=== PATIENT | female | born 1990 | race Two or more races ===

== ENCOUNTER 2017-02-26 15:05 | Observation (INO) | payer MEDICAID ==
[2017-02-26] MEDS ORDERED: PREN-96 PO (16:03)
== END 2017-02-26 18:12 | disposition home or self-care (01) | DRG 566 ==
LOC: LDRP 15:05
PROVIDERS: ADMIT Specialist; ATTEND Specialist
DX: O26.892 Other specified pregnancy related conditions, second trimester (principal); M54.5 Low back pain; R10.9 Unspecified abdominal pain; Z3A.21 21 weeks gestation of pregnancy
CPT/HCPCS: 59025; 76805; 80307; 81002; 87086; G0378

== ENCOUNTER 2017-05-26 02:49 | Observation (INO) | payer MEDICAID ==
[~2017-05-26 02:49] MED LIST: PREN-96 PO
[2017-05-26] MEDS ORDERED: LACTATED RINGER'S 1,000 ML IV ONE (03:44)
[2017-05-26] MEDS ORDERED: TERBUTALINE SULFATE 1 MG/ML 1ML VIAL SC ONE (03:45)
[2017-05-26] MEDS ORDERED: TERBUTALINE SULFATE 1 MG/ML 1ML VIAL SC SCH (03:45)
[2017-05-26 04:41] LABS: Urine Bacteria NONE SEEN /hpf (None Seen); Urine Blood Negative /uL (Negative); Urine Mucus FEW (None Seen); Urine Specific Gravity 1.032 (1.001-1.035); Urine WBC 2 /hpf (0 - 5)
[2017-05-26 04:56] LABS: Amphetamine Screen, Urine NEGATIVE (NEGATIVE); Barbiturate Scree,Urine NEGATIVE (NEGATIVE); Benzodiazephine Screen, Urine NEGATIVE (NEGATIVE); Cannabinoid Screen, Urine POSITIVE (NEGATIVE); Cocaine Screen, Urine NEGATIVE (NEGATIVE); Opiate Scree,Urine NEGATIVE (NEGATIVE); Phencyclidine Screen, Urine NEGATIVE (NEGATIVE)
[2017-05-26] MEDS ORDERED: BETAMETHASONE ACET (6MG/ML) 5ML VIAL IM ONE (05:00)
[2017-05-26] MEDS ORDERED: NIFEdipine 10 MG CAP PO ONE (05:00)
[2017-05-26] MEDS ORDERED: NIFEdipine 10 MG CAP ONE (05:08)
[2017-05-26] MEDS: BETAMETHASONE ACET (6MG/ML) 5ML VIAL ONE ×2 (05:15→05:22)
== END 2017-05-26 06:30 | disposition home or self-care (01) | DRG 566 ==
LOC: LDRP 02:49
PROVIDERS: ADMIT Obstetrics & Gynecology; ATTEND Obstetrics & Gynecology
DX: O26.893 Other specified pregnancy related conditions, third trimester (principal); O62.9 Abnormality of forces of labor, unspecified; R10.9 Unspecified abdominal pain; M54.5 Low back pain; Z3A.33 33 weeks gestation of pregnancy
CPT/HCPCS: 59025; 80307; 81001; 81002; 96360; 96361; 96372; G0378; J0702; J3105; 96365; 96366

== ENCOUNTER 2017-05-28 10:15 | Observation (INO) | payer MEDICAID ==
[2017-05-28] MEDS ORDERED: TERBUTALINE SULFATE 1 MG/ML 1ML VIAL SC ONE (11:00)
[2017-05-28] MEDS ORDERED: BETAMETHASONE ACET (6MG/ML) 5ML VIAL ONE (11:04)
[2017-05-28] MEDS ORDERED: NIF10C GT (12:25)
[2017-05-28] MEDS ORDERED: BETAMETHASONE ACET (6MG/ML) 5ML VIAL IM SCH (22:00)
== END 2017-05-28 11:48 | disposition home or self-care (01) | DRG 566 ==
LOC: LDRP 10:15
PROVIDERS: ADMIT Obstetrics & Gynecology; ATTEND Obstetrics & Gynecology
DX: O26.893 Other specified pregnancy related conditions, third trimester (principal); M54.5 Low back pain; R10.9 Unspecified abdominal pain; Z3A.33 33 weeks gestation of pregnancy
CPT/HCPCS: 59025; 81002; 96372; G0378; J0702; J3105

== ENCOUNTER 2017-06-19 11:45 | Observation (INO) | payer MEDICAID ==
[~2017-06-19 11:45] MED LIST changes: +NIF10C GT
== END 2017-06-19 13:40 | disposition home or self-care (01) | DRG 566 ==
LOC: LDRP 11:45
PROVIDERS: ADMIT Specialist; ATTEND Specialist
DX: O36.5930 Maternal care for other known or suspected poor fetal growth, third trimester, not applicable or unspecified (principal); O26.893 Other specified pregnancy related conditions, third trimester; M54.5 Low back pain; R10.9 Unspecified abdominal pain; Z3A.36 36 weeks gestation of pregnancy
CPT/HCPCS: 59025; 76818; 81002; G0378

== ENCOUNTER 2017-06-22 11:20 | Observation (INO) | payer MEDICAID ==
[~2017-06-22] VITALS: Ht 30.5 cm; Wt 0.5 kg
== END 2017-06-22 13:00 | disposition home or self-care (01) | DRG 566 ==
LOC: LDRP 11:20
PROVIDERS: ADMIT Obstetrics & Gynecology; ATTEND Obstetrics & Gynecology
DX: O36.5930 Maternal care for other known or suspected poor fetal growth, third trimester, not applicable or unspecified (principal); Z87.891 Personal history of nicotine dependence; Z3A.37 37 weeks gestation of pregnancy
CPT/HCPCS: 59025; 76818; 81002; G0378

== ENCOUNTER 2017-06-25 11:25 | Observation (INO) | payer MEDICAID ==
[~2017-06-25 11:25] MED LIST changes: -NIF10C GT
[2017-06-25 13:24] LABS: Urine Bacteria NONE SEEN /hpf (None Seen); Urine Blood Negative /uL (Negative); Urine Mucus FEW (None Seen); Urine Specific Gravity 1.025 (1.001-1.035); Urine WBC 1 /hpf (0 - 5)
[2017-06-25 13:35] LABS: Alcohol, Urine < 3.0 mg/dL (0-5); Amphetamine Screen, Urine NEGATIVE (NEGATIVE); Barbiturate Scree,Urine NEGATIVE (NEGATIVE); Benzodiazephine Screen, Urine NEGATIVE (NEGATIVE); Cannabinoid Screen, Urine POSITIVE (NEGATIVE); Cocaine Screen, Urine NEGATIVE (NEGATIVE); Opiate Scree,Urine NEGATIVE (NEGATIVE); Phencyclidine Screen, Urine NEGATIVE (NEGATIVE)
== END 2017-06-25 13:05 | disposition home or self-care (01) | DRG 566 ==
LOC: LDRP 11:25
PROVIDERS: ADMIT Specialist; ATTEND Specialist
DX: O36.5930 Maternal care for other known or suspected poor fetal growth, third trimester, not applicable or unspecified (principal); O26.893 Other specified pregnancy related conditions, third trimester; M54.5 Low back pain; R10.9 Unspecified abdominal pain; Z3A.37 37 weeks gestation of pregnancy
CPT/HCPCS: 59025; 76818; 80307; 81001; 81002; G0378

== ENCOUNTER 2017-06-25 18:52 | Inpatient (IN) | payer MEDICAID ==
[~2017-06-25] VITALS: Ht 165.1 cm; Wt 81.6 kg
[2017-06-25] MEDS ORDERED: LACTATED RINGER'S 1,000 ML IV ONE (19:30)
[2017-06-25] MEDS: LACTATED RINGER'S 1,000 ML IV SCH ×2 (19:55→23:30)
[2017-06-25 20:09] LABS: Basophils # (auto) 0 uL; Basophils % (auto) 0.2 % (0.0-2.0); Eosinophils # (auto) 0.2 uL; Eosinophils % (auto) 1.4 % (0.0-7.0); Hematocrit 36.9 % (36.0-46.0); Hemoglobin 12.4 g/dL (12.2-16.2); Lymphocytes # (auto) 1.8 uL; Lymphocytes % (auto) 15.5 % (10.0-50.0); Mean Corpuscular Hemoglobin 30.5 pg (28.0-32.0); Mean Corpuscular Hgb Conc. 33.6 g/dL (32.0-36.0); Mean Corpuscular Volume 90.8 fL (80.0-100.0); Monocytes # (auto) 0.7 uL; Monocytes % (auto) 6.4 % (0.0-12.0); Neutrophils # (auto) 8.7 uL; Neutrophils % (auto) 76.5 % (37.0-80.0); Nucleated Red Blood Cells % 0.1 %; Platelet Count (auto) 207 10^3/uL (140-450); Red Blood Cells 4.06 10^6/uL (4.0-5.20); Red Cell Distribution Width 13.7 % (11.8-14.3); White Blood Cell 11.3 10^3/uL (4.4-10.8)
[2017-06-25 20:16] LABS: Urine Bacteria FEW /hpf (None Seen); Urine Blood Negative /uL (Negative); Urine Mucus FEW (None Seen); Urine Specific Gravity 1.031 (1.001-1.035); Urine WBC 4 /hpf (0 - 5)
[2017-06-25 20:26] LABS: INR 0.85 (0.9-1.15); Partial Thromboplastin Time 28.1 sec (22.64-33.71); Prothrombin Time 9.3 sec (9.37-12.3)
[2017-06-25 20:29] LABS: Albumin 2.7 g/dL (3.4-5.0); BUN/Creatinine Ratio 24.1; Bilirubin, Total 0.1 mg/dL (0.2-1.0); Calcium 9.2 mg/dL (8.5-10.1); Potassium 3.6 mmol/L (3.5-5.1); Total Protein 7.1 g/dL (6.4-8.2)
[2017-06-25 20:29] LABS: Alcohol, Urine < 3.0 mg/dL (0-5); Amphetamine Screen, Urine NEGATIVE (NEGATIVE); Barbiturate Scree,Urine NEGATIVE (NEGATIVE); Benzodiazephine Screen, Urine NEGATIVE (NEGATIVE); Cannabinoid Screen, Urine POSITIVE (NEGATIVE); Cocaine Screen, Urine NEGATIVE (NEGATIVE); Opiate Scree,Urine NEGATIVE (NEGATIVE); Phencyclidine Screen, Urine NEGATIVE (NEGATIVE)
[2017-06-25] MEDS ORDERED: NALBUPHINE HCL 10 MG/1ml INJECTION IV PRN (21:45)
[2017-06-25] MEDS ORDERED: LIDOCAINE 2%HCL (LOCAL ANESTH.) INJ 20ML MDV IJ ONE (21:45)
[2017-06-25] MEDS ORDERED: PHISODERM TOP SOLN 240ML BTL TOP PRN (21:45)
[2017-06-25] MEDS ORDERED: DERMOPLAST 60ML BOTTLE TOP PRN (21:45)
[2017-06-25] MEDS ORDERED: WITCH HAZEL-GLYCERIN PAD TOP PRN (21:45)
[2017-06-25] MEDS ORDERED: LACT. RINGERS/OXYTOCIN 20UNITS 1,000 ML IV SCH (21:45)
[2017-06-26] MEDS ORDERED: LACT. RINGERS/OXYTOCIN 20UNITS 1,000 ML IV SCH ×2 (13:23→19:55)
[2017-06-26] MEDS ORDERED: ePHEDrine SULFATE 50 MG/ML AMP IV ONE ×2 (13:30→15:45)
[2017-06-26] MEDS ORDERED: NALOXONE HCL 0.4 MG/ML VIAL IV ONE ×2 (13:30→15:45)
[2017-06-26] MEDS ORDERED: TERBUTALINE SULFATE 1 MG/ML 1ML VIAL SC ONE (13:30)
[2017-06-26] MEDS ORDERED: fentaNYL W ROPIVACAINE 150 ML EPI ONE (14:59)
[2017-06-26] MEDS ORDERED: LIDOCAINE HCL 2 %PF INJ 10ML AMP IJ ONE ×3 (14:59→18:48)
[2017-06-26] MEDS ORDERED: fentaNYL W ROPIVACAINE 150 ML EPI SCH ×2 (15:00→15:45)
[2017-06-26] MEDS ORDERED: fentaNYL CITRATE 100 MCG/2 ML VL ONE ×2 (15:30→18:55)
[2017-06-26] MEDS ORDERED: SODIUM CHLORIDE 0.9% 500 ML IV PRN (15:38)
[2017-06-26] MEDS ORDERED: PROMETHAZINE HCL 25 MG/ML 1ML IM ONE (17:15)
[2017-06-26] MEDS ORDERED: PROMETHAZINE HCL 25 MG/ML 1ML ONE (17:20)
[2017-06-26] MEDS ORDERED: OXYTOCIN 10 UNIT/ML 10ML VIAL ONE (18:48)
[2017-06-26] MEDS ORDERED: ePHEDrine SULFATE 50 MG/ML AMP ONE (18:50)
[2017-06-26] MEDS ORDERED: PHENYLEPHRINE HCL 10 MG/ML VL ONE (18:51)
[2017-06-26] MEDS ORDERED: ceFAZolin 1GM VL ONE (18:52)
[2017-06-26] MEDS ORDERED: MORPHINE SULF(PF) 0.5MG/ML 10ML VIAL ONE (19:19)
[2017-06-26] MEDS ORDERED: MIDAZOLAM HCL 1MG/1ML-2 ML VIAL ONE (19:39)
[2017-06-26] MEDS ORDERED: diphenhdrAMINE HCL 50 MG/1 ML VL IV PRN (20:00)
[2017-06-26] MEDS ORDERED: MORPHINE SULFATE 4 MG/ML SYR/VIAL IV PRN (20:00)
[2017-06-26] MEDS ORDERED: ONDANSETRON HCL 4 MG/2 ML VIAL IV ONE (20:00)
[2017-06-26] MEDS ORDERED: MORPHINE SULF INJ 2 MG/ML SYRINGE 1ML IV PRN (20:00)
[2017-06-26] MEDS ORDERED: METOCLOPRAMIDE HCL 5MG/ml INJ 2ml VIAL IV ONE (20:00)
[2017-06-26] MEDS ORDERED: KETOROLAC TROMETH 30 MG/ML 1ML VIAL IV PRN ×2 (20:00)
[2017-06-26] MEDS ORDERED: ONDANSETRON HCL 4 MG/2 ML VIAL IV PRN ×2 (20:00)
[2017-06-26] MEDS ORDERED: NALOXONE HCL 0.4 MG/ML VIAL IV PRN ×2 (20:00)
[2017-06-26] MEDS ORDERED: MORPHINE SULFATE 4 MG/ML SYR/VIAL ONE (20:06)
[2017-06-26 21:10] VITALS: BP 124/59
[2017-06-26 21:50] VITALS: BP 108/57
[2017-06-26 23:57] VITALS: BP 94/47
[2017-06-27] VITALS (8 sets, daily range): BP systolic 96–111; BP diastolic 49–64
[2017-06-27] MEDS: ceFAZolin 1GM/50ML 50 ML IV SCH ×3 (03:15→18:40)
[2017-06-27 07:45] LABS: Basophils # (auto) 0 uL; Basophils % (auto) 0.2 % (0.0-2.0); Eosinophils # (auto) 0.1 uL; Eosinophils % (auto) 0.5 % (0.0-7.0); Hematocrit 31.5 % (36.0-46.0); Hemoglobin 10.6 g/dL (12.2-16.2); Lymphocytes # (auto) 1.2 uL; Lymphocytes % (auto) 10.2 % (10.0-50.0); Mean Corpuscular Hemoglobin 30.8 pg (28.0-32.0); Mean Corpuscular Hgb Conc. 33.8 g/dL (32.0-36.0); Mean Corpuscular Volume 91.2 fL (80.0-100.0); Monocytes # (auto) 0.8 uL; Monocytes % (auto) 6.5 % (0.0-12.0); Neutrophils # (auto) 9.6 uL; Neutrophils % (auto) 82.6 % (37.0-80.0); Nucleated Red Blood Cells % 0.1 %; Platelet Count (auto) 168 10^3/uL (140-450); Red Blood Cells 3.45 10^6/uL (4.0-5.20); Red Cell Distribution Width 13.5 % (11.8-14.3); White Blood Cell 11.6 10^3/uL (4.4-10.8)
[2017-06-27] MEDS: DOCUSATE SOD 100 MG CAP PO SCH ×2 (09:07→22:18)
[2017-06-27] MEDS: SIMETHICONE 80 MG CHEWABLE TABLET PO PRN (09:07)
[2017-06-27] MEDS: HYDROcodone-ACET 5/325MG TAB PO PRN ×4 (09:10→22:43)
[2017-06-27] MEDS: IBUPROFEN 800 MG TAB PO PRN ×2 (10:22→19:38)
[2017-06-28] MEDS: HYDROcodone-ACET 5/325MG TAB PO PRN ×4 (03:07→20:23)
[2017-06-28 03:15] VITALS: BP 119/78
[2017-06-28] MEDS: IBUPROFEN 800 MG TAB PO PRN ×3 (05:19→22:16)
[2017-06-28 07:00] VITALS: BP 116/77
[2017-06-28] MEDS: DOCUSATE SOD 100 MG CAP PO SCH ×2 (10:00→22:20)
[2017-06-28 11:00] VITALS: BP 116/55
[2017-06-28] MEDS: SIMETHICONE 80 MG CHEWABLE TABLET PO PRN (13:40)
[2017-06-28 15:10] VITALS: BP 113/66
[2017-06-28 18:30] VITALS: BP 111/63
[2017-06-28 23:00] VITALS: BP 104/51
[2017-06-29] MEDS: HYDROcodone-ACET 5/325MG TAB PO PRN (02:00)
[2017-06-29 04:00] VITALS: BP 103/61
[2017-06-29] MEDS: IBUPROFEN 800 MG TAB PO PRN (06:05)
[2017-06-29] MEDS ORDERED: TETANUS-DIPTH-ACEL PERTUSSIS 0.5ML SYRG IM ONE (06:30)
[2017-06-29] MEDS ORDERED: MEASLES, MUMPS & RUBELLA VAC(MMRII) 0.5ML SC ONE (06:30)
[2017-06-29 06:35] VITALS: BP 110/65
[2017-06-29 09:21] VITALS: BP 110/65
== END 2017-06-29 08:55 | disposition home or self-care (01) | DRG 540 ==
LOC: LDRP 18:52
PROVIDERS: ADMIT Specialist; ATTEND Specialist
PROC: 10D00Z1 Extraction of Products of Conception, Low, Open Approach (ICD-10-PCS; principal; 2017-06-26 18:54)
PROC: 3E0234Z Introduction of Serum, Toxoid and Vaccine into Muscle, Percutaneous Approach (ICD-10-PCS; 2017-06-29)
DX: O69.81X0 Labor and delivery complicated by cord around neck, without compression, not applicable or unspecified (principal); O36.5930 Maternal care for other known or suspected poor fetal growth, third trimester, not applicable or unspecified; O76 Abnormality in fetal heart rate and rhythm complicating labor and delivery; Z37.0 Single live birth; Z3A.37 37 weeks gestation of pregnancy; Z88.5 Allergy status to narcotic agent; Z23 Encounter for immunization
CPT/HCPCS: 36415; 51702; 59025; 62282; 76815; 80053; 80307; 81001; 85025; 85610; 85730; 86850; 86900; 86901; 90715; 94762; 96361; 96365; 96366; 96372; J0690; J1885; J2250; J2590; J3010

== ENCOUNTER 2020-05-02 21:28 | Emergency (ER) | payer MEDICAID ==
[~2020-05-02] VITALS: Ht 157.5 cm; Wt 73.9 kg
[2020-05-03 00:34] VITALS: BP 121/73
== END 2020-05-03 00:36 | disposition home or self-care (01) ==
LOC: ER 21:33
DX: J02.9 Acute pharyngitis, unspecified (principal); R05 Cough; R09.81 Nasal congestion; R53.83 Other fatigue; Z20.822 Contact with and (suspected) exposure to COVID-19
CPT/HCPCS: 36415; 87070; 87426; 87804; 87880

== ENCOUNTER 2021-09-13 21:06 | Emergency (ER) | payer MEDICAID, OTHER ==
[~2021-09-13] VITALS: Ht 157.5 cm; Wt 66.7 kg
[~2021-09-13 21:06] MED LIST changes: -CYCL-837 PO; -IBUP800T26 PO
[2021-09-13 21:08] VITALS: BP 117/81
[2021-09-14] MEDS ORDERED: CYCL-837 PO (00:10)
[2021-09-14] MEDS ORDERED: IBUP800T26 PO (00:10)
== END 2021-09-14 00:27 | disposition home or self-care (01) ==
LOC: ER 21:06
DX: F07.81 Postconcussional syndrome (principal); M54.6 Pain in thoracic spine; V98.8XXA Other specified transport accidents, initial encounter; Y93.89 Activity, other specified; Y92.89 Other specified places as the place of occurrence of the external cause; Y99.8 Other external cause status
CPT/HCPCS: 70450

== ENCOUNTER → 2021-09-13 | Emergency (ER) | payer MEDICAID, OTHER ==
[~2021-09-13] VITALS: Ht 157.5 cm; Wt 66.7 kg
[~2021-09-13] MED LIST changes: +CYCL-837 PO; +IBUP800T26 PO
[2021-09-13 12:01] VITALS: BP 117/81
== END | disposition left against medical advice (07) ==
LOC: ER 11:58
DX: R51.9 Headache, unspecified (principal); Z53.21 Procedure and treatment not carried out due to patient leaving prior to being seen by health care provider; V89.2XXA Person injured in unspecified motor-vehicle accident, traffic, initial encounter; Y93.89 Activity, other specified; Y92.89 Other specified places as the place of occurrence of the external cause; Y99.8 Other external cause status

== ENCOUNTER 2022-02-20 16:10 | Emergency (ER) | payer MEDICAID, OTHER ==
[~2022-02-20] VITALS: Ht 157.5 cm; Wt 63.0 kg
[~2022-02-20 16:10] MED LIST changes: +CYCL-837 PO; +IBUP800T26 PO
[2022-02-20 18:16] LABS: Basophils # (auto) 0 10 ^3/uL (0-0.2); Basophils % (auto) 0.6 % (0.0-2.0); Eosinophils # (auto) 0.1 10 ^3/uL (0-0.8); Eosinophils % (auto) 1.9 % (0.0-7.0); Hematocrit 38.6 % (36.0-46.0); Hemoglobin 12.9 g/dL (12.2-16.2); Lymphocytes # (auto) 1.7 10 ^3/uL (0.4-5.4); Lymphocytes % (auto) 25.4 % (10.0-50.0); Mean Corpuscular Hemoglobin 30.6 pg (28.0-32.0); Mean Corpuscular Hgb Conc. 33.4 g/dL (32.0-36.0); Mean Corpuscular Volume 91.4 fL (80.0-100.0); Monocytes # (auto) 0.5 10 ^3/uL (0-1.3); Monocytes % (auto) 7.8 % (0.0-12.0); Neutrophils # (auto) 4.4 10 ^3/uL (1.6-8.6); Neutrophils % (auto) 64.3 % (37.0-80.0); Nucleated Red Blood Cells % 0.1 %; Red Blood Cells 4.22 10^6/uL (4.0-5.20); Red Cell Distribution Width 13.1 % (11.8-14.3); White Blood Cell 6.8 10^3/uL (4.4-10.8)
[2022-02-20 18:42] LABS: Calcium 8.6 mg/dL (8.5-10.1); Potassium 3.8 mmol/L (3.5-5.1)
[2022-02-20 18:47] LABS: Bilirubin, Total 0.5 mg/dL (0.2-1.0); Total Protein 6.4 g/dL (6.4-8.2)
[2022-02-20 19:52] LABS: Urine Bacteria FEW /hpf (None Seen); Urine Blood Negative /uL (Negative); Urine Mucus FEW (None Seen); Urine Specific Gravity 1.028 (1.001-1.035); Urine WBC 6 /hpf (0 - 5)
[2022-02-21] MEDS ORDERED: PRENCAP75 OR (01:23)
[2022-02-21 01:38] VITALS: BP 143/61
== END 2022-02-21 01:44 | disposition home or self-care (01) ==
LOC: ER 16:10
DX: O26.892 Other specified pregnancy related conditions, second trimester (principal); R10.84 Generalized abdominal pain; O99.332 Smoking (tobacco) complicating pregnancy, second trimester; Z79.1 Long term (current) use of non-steroidal anti-inflammatories (NSAID); Z79.899 Other long term (current) drug therapy; Z88.8 Allergy status to other drugs, medicaments and biological substances; Z3A.17 17 weeks gestation of pregnancy
CPT/HCPCS: 36415; 76805; 80053; 81001; 84702; 85025

== ENCOUNTER 2022-03-11 15:13 | Emergency (ER) | payer MEDICAID ==
[~2022-03-11] VITALS: Ht 157.5 cm; Wt 67.0 kg
[~2022-03-11 15:13] MED LIST changes: +PRENCAP75 OR
[2022-03-11 16:59] VITALS: BP 137/73
== END 2022-03-11 21:34 | disposition home or self-care (01) ==
LOC: ER 15:13
DX: O20.8 Other hemorrhage in early pregnancy (principal); F15.10 Other stimulant abuse, uncomplicated; J45.998 Other asthma; Z3A.19 19 weeks gestation of pregnancy
CPT/HCPCS: 76805

== ENCOUNTER 2022-05-20 23:19 | Emergency (ER) | payer MEDICAID ==
[~2022-05-20] VITALS: Ht 162.6 cm; Wt 68.0 kg
[2022-05-20 23:19] VITALS: BP 129/84
== END 2022-05-21 04:13 | disposition left against medical advice (07) ==
LOC: EDBD 23:19 → ER 23:19
DX: R21 Rash and other nonspecific skin eruption (principal); Z53.21 Procedure and treatment not carried out due to patient leaving prior to being seen by health care provider

== ENCOUNTER 2024-09-16 18:41 | Emergency (ER) | payer MEDICAID ==
[~2024-09-16] VITALS: Ht 167.6 cm; Wt 63.7 kg
[~2024-09-16 18:41] MED LIST changes: +IBUP-1455 PO; -IBUP800T26 PO
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
[2024-09-16] MEDS ORDERED: AUG875T PO (20:38)
[2024-09-16 21:26] VITALS: BP 126/84; PULSE 98; RESP 18; TEMP 98; O2SAT 100
== END 2024-09-16 21:31 | disposition home or self-care (01) ==
LOC: EDBD 18:41 → ER 18:41
DX: S81.802A Unspecified open wound, left lower leg, initial encounter (principal); L08.9 Local infection of the skin and subcutaneous tissue, unspecified; F10.90 Alcohol use, unspecified, uncomplicated; F19.90 Other psychoactive substance use, unspecified, uncomplicated; F17.210 Nicotine dependence, cigarettes, uncomplicated; J45.909 Unspecified asthma, uncomplicated; Z88.5 Allergy status to narcotic agent; Z79.1 Long term (current) use of non-steroidal anti-inflammatories (NSAID); Z98.890 Other specified postprocedural states; Y90.9 Presence of alcohol in blood, level not specified; X58.XXXA Exposure to other specified factors, initial encounter; Y93.89 Activity, other specified; Y92.89 Other specified places as the place of occurrence of the external cause; Y99.8 Other external cause status

== ENCOUNTER 2024-09-20 10:15 | Inpatient (IN) | payer MEDICAID ==
[~2024-09-20] VITALS: Ht 170.2 cm; Wt 65.0 kg
[~2024-09-20 10:15] MED LIST changes: +AUG875T PO
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
--- NOTE | 2024-09-20 11:07 | DVH ---
CLINICAL INDICATION: pain/injury TECHNIQUE: 2 radiographic views of the right tibia/fibula were obtained. Comparison: None FINDINGS/IMPRESSION: There is a spiral fracture of the mid tibial shaft.
[2024-09-20] MEDS: HYDROcodone-ACET 5/325MG TAB PO ONE (11:48)
--- NOTE | 2024-09-20 12:07 | DVH ---
Right lower extremity venous duplex Clinical History: pain Comparison: None Technique: Duplex Doppler evaluation of the deep venous system of the right lower extremity from the common femo ral vein to the popliteal vein including color Doppler and spectral/pulsed waveform analysis was perf ormed. Findings: The common femoral vein demonstrates appropriate compressibility and waveform variability. There is compressibility/patency of the great saphenous vein at the proximal thigh. The femoral vein demonstrates appropriate compressibility and waveform variability. The deep femoral vein demonstrates appropriate compressibility and waveform variability. The popliteal vein demonstrates appropriate compressibility and waveform variability. There is normal compressibility at the tibioperoneal trunk. Impression: 1. No right femoropopliteal venous thrombosis.
[2024-09-20] MEDS ORDERED: ONDANSETRON HCL 4 MG/2 ML VIAL IV PRN (17:00)
[2024-09-20] MEDS ORDERED: ACETAMINOPHEN 325 MG TAB PO PRN (17:00)
[2024-09-20] MEDS ORDERED: DOCUSATE SOD 100 MG CAP PO PRN (17:00)
[2024-09-20] MEDS ORDERED: RISP3TAB44 PO (17:15)
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
--- NOTE | 2024-09-20 17:35 | DVH ---
CHEST RADIOGRAPH Indication: SOB Technique: Single frontal view of the chest was obtained COMPARISON: None FINDINGS: Lines and Tubes: None Lungs: Clear Pleura: No effusion. No pneumothorax. Cardiomediastinal contours: Unremarkable Bones: Unremarkable IMPRESSION: 1. No acute disease.
[2024-09-20 17:56] LABS: Basophils # (auto) 0 10 ^3/uL (0-0.2); Basophils % (auto) 0.5 % (0.0-2.0); Eosinophils # (auto) 0.2 10 ^3/uL (0-0.8); Hematocrit 40.7 % (36.0-46.0); Hemoglobin 13.7 g/dL (12.2-16.2); Lymphocytes # (auto) 2.1 10 ^3/uL (0.4-5.4); Lymphocytes % (auto) 22.3 % (10.0-50.0); Mean Corpuscular Hemoglobin 30.7 pg (28.0-32.0); Mean Corpuscular Hgb Conc. 33.7 g/dL (32.0-36.0); Mean Corpuscular Volume 91.2 fL (80.0-100.0); Monocytes % (auto) 10.6 % (0.0-12.0); Neutrophils # (auto) 6.1 10 ^3/uL (1.6-8.6); Neutrophils % (auto) 64.6 % (37.0-80.0); Platelet Count (auto) 258 10^3/uL (140-450); Red Blood Cells 4.46 10^6/uL (4.0-5.20); Red Cell Distribution Width 13.4 % (11.8-14.3); White Blood Cell 9.4 10^3/uL (4.4-10.8)
[2024-09-20 18:10] LABS: Alanine Aminotransferase 23 U/L (7-40); Albumin 4.3 g/dL (3.2-4.8); Alkaline Phosphatase 74 U/L (46-116); Anion Gap 6 (5-15); BUN/Creatinine Ratio 20.4 (10.0-20.0); Blood Urea Nitrogen 19 mg/dL (9-23); Calcium 10.2 mg/dL (8.7-10.4); Chloride 103 mmol/L (98-107); INR 0.97 (0.9-1.15); Partial Thromboplastin Time 25.4 SEC (24.5-34.5); Potassium 3.9 mmol/L (3.5-5.1); Prothrombin Time 10.3 sec (9.3-11.8); Sodium 141 mmol/L (136-145); Total Protein 6.9 g/dL (5.7-8.2)
[2024-09-20 18:11] LABS: Aspartate Aminotransferase 11 U/L (13-40); Bilirubin, Total 0.4 mg/dL (0.2-1.0); Carbon Dioxide 32 mmol/L (20-31); Glucose 57 mg/dL (74-106)
[2024-09-20] MEDS: SODIUM CHLORIDE 0.9% 1,000 ML IV ONE ×2 (18:19)
[2024-09-20] MEDS: cefTRIAXone 1GM/50ML D5W 50 ML IV ONE (18:19)
[2024-09-20] MEDS: HYDROcodone-ACET 5/325MG TAB PO PRN (21:13)
[2024-09-20 23:00] VITALS: PULSE 78; O2SAT 98
[2024-09-21] VITALS (7 sets, daily range): BP systolic 95–105; BP diastolic 48–56; PULSE 61–81; RESP 16–19; TEMP 96.6–98.5; O2SAT 98–99
[2024-09-21 05:49] LABS: Urine Bacteria None Seen /hpf (None Seen)
[2024-09-21 06:12] LABS: Opiate Scree,Urine Pos (NEGATIVE)
[2024-09-21 06:16] LABS: Amphetamine Screen, Urine Pos (NEGATIVE); Barbiturate Scree,Urine Neg (NEGATIVE); Benzodiazephine Screen, Urine Neg (NEGATIVE); Cannabinoid Screen, Urine Neg (NEGATIVE); Cocaine Screen, Urine Neg (NEGATIVE); Phencyclidine Screen, Urine Pos (NEGATIVE)
[2024-09-21 06:26] LABS: Urine Blood Negative /uL (Negative); Urine Clarity Clear (Clear); Urine Color Yellow (Yellow); Urine Protein, UAD Negative (Negative); Urine Specific Gravity 1.032 (1.001-1.035); Urine Squamous Epithelial Cell FEW /hpf (<5); Urine Urobilinogen Normal (Negative); Urine WBC 11 /HPF (0-5); Urine pH 6.5 (5.0-9.0)
[2024-09-21 06:51] LABS: Basophils # (auto) 0 10 ^3/uL (0-0.2); Basophils % (auto) 0.5 % (0.0-2.0); Eosinophils # (auto) 0.3 10 ^3/uL (0-0.8); Eosinophils % (auto) 4.2 % (0.0-7.0); Hematocrit 36.4 % (36.0-46.0); Hemoglobin 12.1 g/dL (12.2-16.2); Lymphocytes # (auto) 2.3 10 ^3/uL (0.4-5.4); Lymphocytes % (auto) 30.7 % (10.0-50.0); Mean Corpuscular Hemoglobin 30.2 pg (28.0-32.0); Mean Corpuscular Hgb Conc. 33.2 g/dL (32.0-36.0); Monocytes # (auto) 0.7 10 ^3/uL (0-1.3); Neutrophils # (auto) 4.1 10 ^3/uL (1.6-8.6); Neutrophils % (auto) 55.6 % (37.0-80.0); Platelet Count (auto) 241 10^3/uL (140-450); Red Cell Distribution Width 13.4 % (11.8-14.3); White Blood Cell 7.4 10^3/uL (4.4-10.8)
[2024-09-21 07:18] LABS: Alanine Aminotransferase 17 U/L (7-40); Albumin 3.6 g/dL (3.2-4.8); Alkaline Phosphatase 61 U/L (46-116); Anion Gap 8 (5-15); BUN/Creatinine Ratio 32.8 (10.0-20.0); Blood Urea Nitrogen 21 mg/dL (9-23); Calcium 9.3 mg/dL (8.7-10.4); Carbon Dioxide 26 mmol/L (20-31); Chloride 105 mmol/L (98-107); Glucose 104 mg/dL (74-106); Potassium 4.3 mmol/L (3.5-5.1); Sodium 139 mmol/L (136-145); Total Protein 5.9 g/dL (5.7-8.2)
[2024-09-21 07:19] LABS: Aspartate Aminotransferase 10 U/L (13-40); Bilirubin, Total 0.4 mg/dL (0.2-1.0)
[2024-09-21] MEDS: cefTRIAXone 1GM/50ML D5W 50 ML IV SCH (08:59)
[2024-09-21] MEDS: risperiDONE 1 MG TAB PO SCH (09:00)
--- NOTE | 2024-09-21 16:50 | DVHPN2 ---
Subjective Seen in bed Reviewed: H&P, Labs Changes from previous H/P or p: No Changes Eyes: No Pain, No Vision change, No Conjunctivae inflammation, No Eyelid inflammation, No Other, No Redness ENT: No Ear pain, No Ear discharge, No Nose pain, No Nose discharge, No Nose congestion, No Mouth pain, No Mouth swelling, No Throat pain, No Throat swelling, No Other Cardiovascular: No Chest Pain, No Palpitations, No Orthopnea, No Paroxysmal Noc. Dyspnea, No Edema, No Lt Headedness, No Other Respiratory: No Cough, No Dry, No Shortness of breath, No SOB with excertion, No Wheezing, No Hemoptysis, No Pleuritic Pain, No Sputum, No Other Gastrointestinal: No Nausea, No Vomiting, No Abdominal Pain, No Diarrhea, No Constipation, No Melena, No Hematochezia, No Other Genitourinary: No Dysuria, No Frequency, No Incontinence, No Hematuria, No Retention, No Other Musculoskeletal: No other, No neck pain, No shoulder pain, No arm pain, No back pain, No hand pain; leg pain (right); No foot pain Skin: No Rash, No Lesions, No Jaundice, No Bruising, No Other Objective Vitals Vital Signs Date Time Temp Pulse Resp B/P (MAP) Pulse Ox O2 Delivery O2 Flow Rate FiO2 09/21/24 13:00 98.1 61 16 95/48 (64) 99 98.1 09/21/24 08:00 Room Air* 0 21 Intake/Output Intake and Output 09/21/24 07:00 Intake Total 200 ml Output Total 400 ml Balance -200 ml Intake Oral 200 ml Output Urine Total 400 ml Medications Current Medications Medications Dose Ordered Sig/Monique Route Start Time Stop Time Status Last Admin Dose Admin Acetaminophen/ Hydrocodone Bitart 1 tab Q4HP PRN PO 09/20/24 17:00 09/21/24 05:00 1 TAB Ondansetron HCl 4 mg Q4HP PRN IV 09/20/24 17:00 Docusate Sodium 100 mg BIDPRN PRN PO 09/20/24 17:00 Acetaminophen 650 mg Q6HP PRN PO 09/20/24 17:00 Morphine Sulfate 2 mg Q4HPRN PRN IV 09/20/24 17:00 Risperidone 3 mg DAILY PO 09/21/24 10:00 09/21/24 09:00 3 MG Ceftriaxone Sodium 50 ml @ 100 mls/hr DAILY@09 IV 09/21/24 09:00 09/21/24 08:59 100 MLS/HR Laboratory Results Laboratory Tests 09/21/24 06:18 Chemistry Test 09/20/24 17:26 09/21/24 06:18 Albumin 4.3 g/dL (3.2-4.8) 3.6 g/dL (3.2-4.8) Calcium Level 10.2 mg/dL (8.7-10.4) 9.3 mg/dL (8.7-10.4) Total Protein 6.9 g/dL (5.7-8.2) 5.9 g/dL (5.7-8.2) Coagulation Test 09/20/24 17:26 Prothrombin Time 10.3 sec (9.3-11.8) Prothrombin Time INR 0.97 (0.9-1.15) Activated Partial Thromboplast Time 25.4 SEC (24.5-34.5) LFT Test 09/20/24 17:26 09/21/24 06:18 Alanine Aminotransferase (ALT) 23 U/L (7-40) 17 U/L (7-40) Alkaline Phosphatase 74 U/L (46-116) 61 U/L (46-116) Aspartate Amino Transferase (AST) 11 U/L (13-40) L 10 U/L (13-40) L Total Bilirubin 0.4 mg/dL (0.2-1.0) 0.4 mg/dL (0.2-1.0) HgA1c, TSH Test 09/20/24 17:26 Thyroid Stimulating Hormone (TSH) 1.23 uIU/mL (0.55-4.78) Urinalysis Test 09/21/24 04:50 Urine Color Yellow (Yellow) Urine Clarity Clear (Clear) Urine pH 6.5 (5.0-9.0) Urine Specific [place] 1.032 (1.001-1.035) Urine Protein Negative (Negative) Urine Ketones Negative (Negative) Urine Blood Negative /uL (Negative) Urine Nitrite Negative (Negative) Urine Bilirubin Negative (Negative) Urine Urobilinogen Normal mg/dL (Negative) Urine Leukocyte Esterase Trace /uL (Negative) Urine RBC 1 /hpf (0 - 4) Urine Microscopic WBC 11 /HPF (0-5) H Urine Squamous Epithelial Cells Few /hpf (<5) Urine Bacteria None seen /hpf (None Seen) Urine Glucose Normal mg/dL (Normal) Urine Test Negative (Negative) Assessment/Plan Assessment/Plan Right tibial fracture, Anxiety, Polysubstance abuse, Pending Ortho consult continue pain medications Plan discussed with: Patient Date of Service: Sep 21, 2024 Billing Provider: SHOSHANA VASQUEZ MD Common Visit Codes: [id number] INP/OBS CARE(HIGH) SHOSHANA VASQUEZ MD Sep 21, 2024 16:50
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
[2024-09-22] VITALS (8 sets, daily range): BP systolic 93–120; BP diastolic 54–68; PULSE 60–79; RESP 9–19; TEMP 97.4–98.2; O2SAT 96–100
[2024-09-22] MEDS ORDERED: MIDAZOLAM HCL 2MG/2ML 2ml VIAL (1mg/ml) ONE (12:56)
[2024-09-22] MEDS ORDERED: fentaNYL CITRATE 100 MCG/2 ML VL ONE (12:56)
[2024-09-22] MEDS: BUPIVACAINE 0.25% INJ 50ML VIAL ONE (12:58)
[2024-09-22] MEDS: LIDOCAINE W/ EPINEPHRINE 1% 20ML VIAL ONE (12:59)
[2024-09-22] MEDS ORDERED: ONDANSETRON HCL 4 MG/2 ML VIAL ONE (13:00)
[2024-09-22] MEDS ORDERED: DexAMETHasone SOD PHOS 10MG/1ML VIAL INJ ONE ×2 (13:00→13:44)
[2024-09-22] MEDS ORDERED: LIDOCAINE 2% (LOCAL ANESTH.) PF 5ml SDV ONE (13:00)
--- NOTE | 2024-09-22 13:00 | DVHOP2 ---
Operative Report - 2 Report Details Date: 09/22/24 Preop Diagnosis: Right midshaft tibia fracture Postop Diagnosis: Right midshaft tibia fracture Surgeon: Dale Aragon MD Anesthesiologist: Ilir ARREOLA Anesthesia: General Implant: Ortho Xcel Tibia nail with proximal locking screw x 2 Consent: The patient was informed of the risks and benefits of the procedure. These include but are not limited to complications of anesthesia, postoperative infection, incomplete relief of symptoms, recurrence of symptoms, damage to blood vessels, nerves and tendons, deep venous thrombosis, pulmonary embolism and possible need for repeat surgery in the future. Estimated Blood Loss: 5 cc Name of Procedure Performed 1. Open reduction internal fixation of right tibia fracture; 2. Intraop fluoro Procedure Details Procedure Details: In the preoperative holding area, the consent was reviewed and the appropriate extremity was verified by the patient and marked with my initials. The patient was then transferred to the operating theatre. Appropriate anesthesia was induced. All bony prominences were well padded. A time out was performed verifying the side and site of surgery according to standard protocol. Preoperative antibiotics were given. Risks/benefits/options and alternatives were reviewed in depth with patient and his girlfriend. Patient and family understand this. Risks include but not limited to bleeding, infection, nerve injury, hardware failure, malunion, nonunion, chronic pain, stiffness, amputation, deep venous thrombosis and . A right pneumatic thigh tourniquet was placed about the patient's thigh. The lower extremity was then scrubbed, prepped and draped in the usual aseptic manner. The lower extremity was elevated and exsanguinated using an Esmarch bandage. The tourniquet was then inflated. Patient had a soft tissue wound over fracture site with fracture blisters medially. Attention was then directed to the standard supra-patella tibial nail technique. We made a 4 cm incision over the quadriceps tendon which was split. Using fluoro, we had correct start point with our entry pin on AP and lateral xray. We then put our starter reamer in place. We used manual reduction techniques. We gentle reamed up to a 10.5. We then placed a 9 tibial nail. We did two proximal static screw and locking screw proximally fluoroscopy. Screws were deemed proper length. We skipped on distal screw as he had large skin wound at medial aspect of his ankle. The tourniquet was deflated and prompt hemostasis was achieved. Local injection of lidocaine and marcaine plain was injected. The area was then copiously flushed with normal sterile saline and closed in a layered fashion utilizing 2-0 Vicryl and a 3-0 nylon. Dressings were then applied consisting of Adaptic, 4 x 4s, Dori, Kerlix and sterile Webril. Next, a multi-layer dressing consisting of cast padding and Jhon bandages were placed about to the patient's left leg distal to the patient's knee. A 5 inch posterior fiberglass splint was placed along the patient's p osterior right leg with care taken to keep the foot at 90 degrees. Also, a U- shaped 4-inch fiberglass splint was placed from medial to lateral in a stirrup fashion for additional support. Additional Jhon bandages were placed over the fiberglass splint to keep them in place. Condition Good Disposition Still a Patient DALE ARAGON MD Sep 22, 2024 13:00
[2024-09-22] MEDS ORDERED: ceFAZolin 1GM VL ONE (13:09)
[2024-09-22] MEDS ORDERED: HYDROmorphone HCL 2 MG/ML VL/or syr ONE (13:32)
[2024-09-22] MEDS: BUPIVACAINE HCL 0.25% P/F 10 ML VIAL ONE (13:43)
[2024-09-22] MEDS: LIDOCAINE 1% HCL (LOCAL ANESTH.) INJ 20ML MDV ONE (13:45)
[2024-09-22] MEDS ORDERED: ePHEDrine SULFATE 50 MG/ML AMP ONE (14:10)
[2024-09-22] MEDS ORDERED: ePHEDrine SULFATE 50 MG/ML AMP IV PRN (14:30)
[2024-09-22] MEDS: KETOROLAC TROMETH 30 MG/ML 1ML VIAL IV ONE (14:30)
[2024-09-22] MEDS ORDERED: MIDAZOLAM HCL 2MG/2ML 2ml VIAL (1mg/ml) IV PRN (14:30)
[2024-09-22] MEDS ORDERED: MORPHINE SULFATE 4 MG/ML SYR/VIAL IV PRN (14:30)
[2024-09-22] MEDS ORDERED: hydrALAZINE HCL 20 MG/ML VL IV PRN (14:30)
[2024-09-22] MEDS: ceFAZolin 1GM/50ML 50 ML IV SCH (14:32)
[2024-09-22] MEDS: HYDROmorphone HCL 2 MG/ML VL/or syr IV PRN (14:37)
[2024-09-22] MEDS ORDERED: ACETAMINOPHEN IV 1000 MG/100ML (10MG/ML) IV PRN (14:45)
[2024-09-22] MEDS: ACETAMINOPHEN IV 1000 MG/100ML (10MG/ML) IV PRN (14:47)
[2024-09-22] MEDS: ONDANSETRON HCL 4 MG/2 ML VIAL IV ONE (14:56)
[2024-09-22] MEDS: HYDROmorphone HCL 2 MG/ML VL/or syr ONE (14:57)
--- NOTE | 2024-09-22 15:53 | DVH ---
C-ARM FLUOROSCOPY: PROCEDURE: Tib fib nailing FLUOROSCOPY TIME: 28.8 sec DAP: 0.75 mgy FINDINGS: Spot intraoperative C arm radiographs demonstrating tib fib nailing. IMPRESSION: Please refer to surgical report for detailed findings.
--- NOTE | 2024-09-22 15:53 | DVH ---
C-ARM FLUOROSCOPY: PROCEDURE: Tib fib nailing FLUOROSCOPY TIME: 28.8 sec DAP: 0.75 mgy FINDINGS: Spot intraoperative C arm radiographs demonstrating tib fib nailing. IMPRESSION: Please refer to surgical report for detailed findings.
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
[2024-09-23 05:00] VITALS: BP_SYST 102; BP_SYST 117; BP_DIAS 42; BP_DIAS 69; PULSE 76; PULSE 98; RESP 18; TEMP 97.9; O2SAT 100; O2SAT 96
[2024-09-23 08:00] VITALS: PULSE 83; RESP 20; O2SAT 99
[2024-09-23] MEDS: ASPirin 325 MG TAB PO SCH (08:27)
[2024-09-23 09:00] VITALS: BP_SYST 109; BP_SYST 116; BP_DIAS 70; BP_DIAS 76; PULSE 83; PULSE 95; RESP 16; RESP 20; TEMP 97; TEMP 97.2; O2SAT 100; O2SAT 99
[2024-09-23 17:00] VITALS: BP 111/68; PULSE 105; RESP 18; TEMP 97.7; O2SAT 100
[2024-09-23] MEDS: MORPHINE SULFATE 4 MG/ML SYR/VIAL IV PRN (18:32)
[2024-09-23 20:00] VITALS: PULSE 71; RESP 20; O2SAT 99
--- NOTE | 2024-09-23 20:11 | DVHPN2 ---
Subjective Seen in bed Reviewed: H&P, Labs Changes from previous H/P or p: No Changes Eyes: No Pain, No Vision change, No Conjunctivae inflammation, No Eyelid inflammation, No Other, No Redness ENT: No Ear pain, No Ear discharge, No Nose pain, No Nose discharge, No Nose congestion, No Mouth pain, No Mouth swelling, No Throat pain, No Throat swelling, No Other Cardiovascular: No Chest Pain, No Palpitations, No Orthopnea, No Paroxysmal Noc. Dyspnea, No Edema, No Lt Headedness, No Other Respiratory: No Cough, No Dry, No Shortness of breath, No SOB with excertion, No Wheezing, No Hemoptysis, No Pleuritic Pain, No Sputum, No Other Gastrointestinal: No Nausea, No Vomiting, No Abdominal Pain, No Diarrhea, No Constipation, No Melena, No Hematochezia, No Other Genitourinary: No Dysuria, No Frequency, No Incontinence, No Hematuria, No Retention, No Other Musculoskeletal: No other, No neck pain, No shoulder pain, No arm pain, No back pain, No hand pain; leg pain (right); No foot pain Skin: No Rash, No Lesions, No Jaundice, No Bruising, No Other Objective Vitals Vital Signs Date Time Temp Pulse Resp B/P (MAP) Pulse Ox O2 Delivery O2 Flow Rate FiO2 09/23/24 18:32 105 18 111/68 09/23/24 17:00 97.7 100 97.7 09/23/24 08:00 Room Air* 0 21 Intake/Output Intake and Output 09/23/24 06:59 Intake Total 700 ml Balance 700 ml Intake Oral 400 ml IV Total 300 ml # Voids 2 Medications Current Medications Medications Dose Ordered Sig/Monique Route Start Time Stop Time Status Last Admin Dose Admin Acetaminophen/ Hydrocodone Bitart 1 tab Q4HP PRN PO 09/20/24 17:00 09/23/24 15:14 1 TAB Ondansetron HCl 4 mg Q4HP PRN IV 09/20/24 17:00 Docusate Sodium 100 mg BIDPRN PRN PO 09/20/24 17:00 Acetaminophen 650 mg Q6HP PRN PO 09/20/24 17:00 Morphine Sulfate 2 mg Q4HPRN PRN IV 09/20/24 17:00 09/23/24 18:32 2 MG Risperidone 3 mg DAILY PO 09/21/24 10:00 09/23/24 08:27 3 MG Ceftriaxone Sodium 50 ml @ 100 mls/hr DAILY@09 IV 09/21/24 09:00 09/23/24 08:27 100 MLS/HR Aspirin 325 mg DAILY PO 09/23/24 10:00 09/23/24 08:27 325 MG Laboratory Results Laboratory Tests 09/21/24 06:18 Urinalysis Test 09/21/24 04:50 Urine Color Yellow (Yellow) Urine Clarity Clear (Clear) Urine pH 6.5 (5.0-9.0) Urine Specific [place] 1.032 (1.001-1.035) Urine Protein Negative (Negative) Urine Ketones Negative (Negative) Urine Blood Negative /uL (Negative) Urine Nitrite Negative (Negative) Urine Bilirubin Negative (Negative) Urine Urobilinogen Normal mg/dL (Negative) Urine Leukocyte Esterase Trace /uL (Negative) Urine RBC 1 /hpf (0 - 4) Urine Microscopic WBC 11 /HPF (0-5) H Urine Squamous Epithelial Cells Few /hpf (<5) Urine Bacteria None seen /hpf (None Seen) Urine Glucose Normal mg/dL (Normal) Urine Test Negative (Negative) Assessment/Plan Assessment/Plan Right tibial fracture, Anxiety, Polysubstance abuse, s/p ORIF Tib fracture continue pain medications PT eval Plan discussed with: Patient Date of Service: Sep 23, 2024 Billing Provider: SHOSHANA VASQUEZ MD Common Visit Codes: [id number] INP/OBS CARE(HIGH) SHOSHANA VASQUEZ MD Sep 23, 2024 20:11
[2024-09-23 21:00] VITALS: BP 118/72; PULSE 94; RESP 20; TEMP 98.3; O2SAT 100
[2024-09-24] VITALS (8 sets, daily range): BP systolic 102–127; BP diastolic 53–77; PULSE 79–100; RESP 18–20; TEMP 96.7–98.4; O2SAT 98–100
[2024-09-24] MEDS ORDERED: HYDR-4902 PO (10:12)
--- NOTE | 2024-09-24 15:24 | DVHPN2 ---
Subjective Seen in bed Reviewed: H&P, Labs Changes from previous H/P or p: No Changes Eyes: No Pain, No Vision change, No Conjunctivae inflammation, No Eyelid inflammation, No Other, No Redness ENT: No Ear pain, No Ear discharge, No Nose pain, No Nose discharge, No Nose congestion, No Mouth pain, No Mouth swelling, No Throat pain, No Throat swelling, No Other Cardiovascular: No Chest Pain, No Palpitations, No Orthopnea, No Paroxysmal Noc. Dyspnea, No Edema, No Lt Headedness, No Other Respiratory: No Cough, No Dry, No Shortness of breath, No SOB with excertion, No Wheezing, No Hemoptysis, No Pleuritic Pain, No Sputum, No Other Gastrointestinal: No Nausea, No Vomiting, No Abdominal Pain, No Diarrhea, No Constipation, No Melena, No Hematochezia, No Other Genitourinary: No Dysuria, No Frequency, No Incontinence, No Hematuria, No Retention, No Other Musculoskeletal: No other, No neck pain, No shoulder pain, No arm pain, No back pain, No hand pain; leg pain (right); No foot pain Skin: No Rash, No Lesions, No Jaundice, No Bruising, No Other Objective Vitals Vital Signs Date Time Temp Pulse Resp B/P (MAP) Pulse Ox O2 Delivery O2 Flow Rate FiO2 09/24/24 12:42 96.8 79 20 113/77 (89) 98 96.8 09/24/24 08:00 Room Air* 0 21 Intake/Output Intake and Output 09/24/24 07:00 Intake Total 870 ml Balance 870 ml Intake Oral 820 ml IV Total 50 ml # Voids 5 Medications Current Medications Medications Dose Ordered Sig/Monique Route Start Time Stop Time Status Last Admin Dose Admin Acetaminophen/ Hydrocodone Bitart 1 tab Q4HP PRN PO 09/20/24 17:00 09/24/24 10:15 1 TAB Ondansetron HCl 4 mg Q4HP PRN IV 09/20/24 17:00 Docusate Sodium 100 mg BIDPRN PRN PO 09/20/24 17:00 Acetaminophen 650 mg Q6HP PRN PO 09/20/24 17:00 Morphine Sulfate 2 mg Q4HPRN PRN IV 09/20/24 17:00 09/23/24 18:32 2 MG Risperidone 3 mg DAILY PO 09/21/24 10:00 09/24/24 10:34 3 MG Ceftriaxone Sodium 50 ml @ 100 mls/hr DAILY@09 IV 09/21/24 09:00 09/24/24 10:16 100 MLS/HR Aspirin 325 mg DAILY PO 09/23/24 10:00 09/24/24 10:15 325 MG Laboratory Results Laboratory Tests 09/21/24 06:18 Urinalysis Test 09/21/24 04:50 Urine Color Yellow (Yellow) Urine Clarity Clear (Clear) Urine pH 6.5 (5.0-9.0) Urine Specific [place] 1.032 (1.001-1.035) Urine Protein Negative (Negative) Urine Ketones Negative (Negative) Urine Blood Negative /uL (Negative) Urine Nitrite Negative (Negative) Urine Bilirubin Negative (Negative) Urine Urobilinogen Normal mg/dL (Negative) Urine Leukocyte Esterase Trace /uL (Negative) Urine RBC 1 /hpf (0 - 4) Urine Microscopic WBC 11 /HPF (0-5) H Urine Squamous Epithelial Cells Few /hpf (<5) Urine Bacteria None seen /hpf (None Seen) Urine Glucose Normal mg/dL (Normal) Urine Test Negative (Negative) Assessment/Plan Assessment/Plan Right tibial fracture, Anxiety, Polysubstance abuse, s/p ORIF Tib fracture continue pain medications PT eval Plan discussed with: Patient My Orders Orders - SHOSHANA VASQUEZ MD Procedure Category Date Status Time Pt Request For Service PT 09/23/24 Logged 20:11 Discharge DISCHARGE 09/24/24 Transmitted 10:13 Date of Service: Sep 24, 2024 Billing Provider: SHOSHANA VASQUEZ MD Common Visit Codes: [id number] INP/OBS CARE(HIGH) SHOSHANA VASQUEZ MD Sep 24, 2024 15:24
[2024-09-25] VITALS (8 sets, daily range): BP systolic 95–119; BP diastolic 56–70; PULSE 80–92; RESP 17–18; TEMP 97.6–98.6; O2SAT 97–100
--- NOTE | 2024-09-25 18:38 | DVHPN2 ---
Subjective Seen in bed Reviewed: H&P, Labs Changes from previous H/P or p: No Changes Eyes: No Pain, No Vision change, No Conjunctivae inflammation, No Eyelid inflammation, No Other, No Redness ENT: No Ear pain, No Ear discharge, No Nose pain, No Nose discharge, No Nose congestion, No Mouth pain, No Mouth swelling, No Throat pain, No Throat swelling, No Other Cardiovascular: No Chest Pain, No Palpitations, No Orthopnea, No Paroxysmal Noc. Dyspnea, No Edema, No Lt Headedness, No Other Respiratory: No Cough, No Dry, No Shortness of breath, No SOB with excertion, No Wheezing, No Hemoptysis, No Pleuritic Pain, No Sputum, No Other Gastrointestinal: No Nausea, No Vomiting, No Abdominal Pain, No Diarrhea, No Constipation, No Melena, No Hematochezia, No Other Genitourinary: No Dysuria, No Frequency, No Incontinence, No Hematuria, No Retention, No Other Musculoskeletal: No other, No neck pain, No shoulder pain, No arm pain, No back pain, No hand pain; leg pain (right); No foot pain Skin: No Rash, No Lesions, No Jaundice, No Bruising, No Other Objective Vitals Vital Signs Date Time Temp Pulse Resp B/P (MAP) Pulse Ox O2 Delivery O2 Flow Rate FiO2 09/25/24 16:05 98.6 80 18 100/60 (73) 97 98.6 09/25/24 07:30 Room Air* 0 21 Intake/Output Intake and Output 09/25/24 07:00 Intake Total 1520 ml Balance 1520 ml Intake Oral 1520 ml # Voids 7 # Bowel Movements 1 Medications Current Medications Medications Dose Ordered Sig/Monique Route Start Time Stop Time Status Last Admin Dose Admin Acetaminophen/ Hydrocodone Bitart 1 tab Q4HP PRN PO 09/20/24 17:00 09/25/24 13:48 1 TAB Ondansetron HCl 4 mg Q4HP PRN IV 09/20/24 17:00 Docusate Sodium 100 mg BIDPRN PRN PO 09/20/24 17:00 Acetaminophen 650 mg Q6HP PRN PO 09/20/24 17:00 Morphine Sulfate 2 mg Q4HPRN PRN IV 09/20/24 17:00 09/23/24 18:32 2 MG Risperidone 3 mg DAILY PO 09/21/24 10:00 09/25/24 09:29 3 MG Ceftriaxone Sodium 50 ml @ 100 mls/hr DAILY@09 IV 09/21/24 09:00 09/25/24 09:29 100 MLS/HR Aspirin 325 mg DAILY PO 09/23/24 10:00 09/25/24 09:34 325 MG Laboratory Results Laboratory Tests 09/21/24 06:18 Urinalysis Test 09/21/24 04:50 Urine Color Yellow (Yellow) Urine Clarity Clear (Clear) Urine pH 6.5 (5.0-9.0) Urine Specific [place] 1.032 (1.001-1.035) Urine Protein Negative (Negative) Urine Ketones Negative (Negative) Urine Blood Negative /uL (Negative) Urine Nitrite Negative (Negative) Urine Bilirubin Negative (Negative) Urine Urobilinogen Normal mg/dL (Negative) Urine Leukocyte Esterase Trace /uL (Negative) Urine RBC 1 /hpf (0 - 4) Urine Microscopic WBC 11 /HPF (0-5) H Urine Squamous Epithelial Cells Few /hpf (<5) Urine Bacteria None seen /hpf (None Seen) Urine Glucose Normal mg/dL (Normal) Urine Test Negative (Negative) Assessment/Plan Assessment/Plan Right tibial fracture, Anxiety, Polysubstance abuse, s/p ORIF Tib fracture continue pain medications Dispo: Planning to DC tomorrow when she get a place to go, currently home less Plan discussed with: Patient Date of Service: Sep 25, 2024 Billing Provider: SHOSHANA VASQUEZ MD Common Visit Codes: [id number] INP/OBS CARE(HIGH) SHOSHANA VASQUEZ MD Sep 25, 2024 18:38
[2024-09-26] VITALS (8 sets, daily range): BP systolic 101–109; BP diastolic 57–63; PULSE 63–91; RESP 16–18; TEMP 97.6–98.4; O2SAT 97–100
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
--- NOTE | 2024-09-26 18:25 | MEDREC ---
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
--- NOTE | 2024-09-27 04:33 | DVHPN2 ---
Subjective Seen in bed Reviewed: H&P, Labs Changes from previous H/P or p: No Changes Eyes: No Pain, No Vision change, No Conjunctivae inflammation, No Eyelid inflammation, No Other, No Redness ENT: No Ear pain, No Ear discharge, No Nose pain, No Nose discharge, No Nose congestion, No Mouth pain, No Mouth swelling, No Throat pain, No Throat swelling, No Other Cardiovascular: No Chest Pain, No Palpitations, No Orthopnea, No Paroxysmal Noc. Dyspnea, No Edema, No Lt Headedness, No Other Respiratory: No Cough, No Dry, No Shortness of breath, No SOB with excertion, No Wheezing, No Hemoptysis, No Pleuritic Pain, No Sputum, No Other Gastrointestinal: No Nausea, No Vomiting, No Abdominal Pain, No Diarrhea, No Constipation, No Melena, No Hematochezia, No Other Genitourinary: No Dysuria, No Frequency, No Incontinence, No Hematuria, No Retention, No Other Musculoskeletal: No other, No neck pain, No shoulder pain, No arm pain, No back pain, No hand pain; leg pain (right); No foot pain Skin: No Rash, No Lesions, No Jaundice, No Bruising, No Other Objective Vitals Vital Signs Date Time Temp Pulse Resp B/P (MAP) Pulse Ox O2 Delivery O2 Flow Rate FiO2 09/26/24 21:00 98.4 88 18 105/62 (76) 97 98.4 09/26/24 20:00 Room Air* 0 21 Intake/Output Intake and Output 09/27/24 07:00 Intake Total 486 ml Balance 486 ml Intake Oral 436 ml IV Total 50 ml # Voids 4 Medications Current Medications Medications Dose Ordered Sig/Monique Route Start Time Stop Time Status Last Admin Dose Admin Acetaminophen/ Hydrocodone Bitart 1 tab Q4HP PRN PO 09/20/24 17:00 09/26/24 20:24 1 TAB Ondansetron HCl 4 mg Q4HP PRN IV 09/20/24 17:00 Docusate Sodium 100 mg BIDPRN PRN PO 09/20/24 17:00 Acetaminophen 650 mg Q6HP PRN PO 09/20/24 17:00 Morphine Sulfate 2 mg Q4HPRN PRN IV 09/20/24 17:00 09/23/24 18:32 2 MG Risperidone 3 mg DAILY PO 09/21/24 10:00 09/26/24 08:33 3 MG Ceftriaxone Sodium 50 ml @ 100 mls/hr DAILY@09 IV 09/21/24 09:00 09/26/24 08:33 100 MLS/HR Aspirin 325 mg DAILY PO 09/23/24 10:00 09/26/24 08:33 325 MG Laboratory Results Laboratory Tests 09/21/24 06:18 Urinalysis Test 09/21/24 04:50 Urine Color Yellow (Yellow) Urine Clarity Clear (Clear) Urine pH 6.5 (5.0-9.0) Urine Specific [place] 1.032 (1.001-1.035) Urine Protein Negative (Negative) Urine Ketones Negative (Negative) Urine Blood Negative /uL (Negative) Urine Nitrite Negative (Negative) Urine Bilirubin Negative (Negative) Urine Urobilinogen Normal mg/dL (Negative) Urine Leukocyte Esterase Trace /uL (Negative) Urine RBC 1 /hpf (0 - 4) Urine Microscopic WBC 11 /HPF (0-5) H Urine Squamous Epithelial Cells Few /hpf (<5) Urine Bacteria None seen /hpf (None Seen) Urine Glucose Normal mg/dL (Normal) Urine Test Negative (Negative) Assessment/Plan Assessment/Plan Right tibial fracture, Anxiety, Polysubstance abuse, s/p ORIF Tib fracture continue pain medications Dispo: DC today and family appealing Plan discussed with: Patient My Orders Orders - SHOSHANA VASQUEZ MD Procedure Category Date Status Time * Extractions Technologist CONS 09/26/24 Transmitted Consult 15:16 Discharge DISCHARGE 09/26/24 Transmitted 15:17 Date of Service: Sep 26, 2024 Billing Provider: SHOSHANA VASQUEZ MD Common Visit Codes: [id number] INP/OBS CARE(HIGH) SHOSHANA VASQUEZ MD Sep 27, 2024 04:33
[2024-09-27 05:00] VITALS: BP 107/64; PULSE 78; RESP 18; TEMP 97.9; O2SAT 100
[2024-09-27 07:30] VITALS: PULSE 78; RESP 18
[2024-09-27 09:00] VITALS: BP 103/70; PULSE 73; RESP 17; TEMP 97.5; O2SAT 99
[2024-09-27 13:00] VITALS: BP 103/54; PULSE 93; RESP 18; TEMP 98.1; O2SAT 95
== END 2024-09-27 15:09 | disposition left against medical advice (07) | DRG 313 ==
LOC: EDBD 10:15 → ER 10:15 → OVERFLOW 16:55 → WEST WING 09-21 04:03
PROVIDERS: ADMIT Hospitalist; ATTEND Hospitalist
PROC: 0QSG06Z Reposition Right Tibia with Intramedullary Internal Fixation Device, Open Approach (ICD-10-PCS; principal; 2024-09-22 12:58)
DX: S82.291A Other fracture of shaft of right tibia, initial encounter for closed fracture (principal); F17.210 Nicotine dependence, cigarettes, uncomplicated; F19.10 Other psychoactive substance abuse, uncomplicated; J45.909 Unspecified asthma, uncomplicated; F20.9 Schizophrenia, unspecified; F41.9 Anxiety disorder, unspecified; Z98.891 History of uterine scar from previous surgery; Z59.00 Homelessness unspecified; Z53.29 Procedure and treatment not carried out because of patient's decision for other reasons; W22.8XXA Striking against or struck by other objects, initial encounter; Y93.89 Activity, other specified; Y92.89 Other specified places as the place of occurrence of the external cause; Y99.8 Other external cause status; Z88.5 Allergy status to narcotic agent
CPT/HCPCS: 36415; 71045; 73590; 76000; 80053; 80307; 81001; 81025; 84443; 85025; 85610; 85730; 93971; 97110; 97116; 97163; G0378; J0131; J0690; J1100; J2003; J2250; J2405; J3490

== ENCOUNTER 2024-10-01 12:05 | Inpatient (IN) | payer MEDICAID ==
[~2024-10-01] VITALS: Ht 162.6 cm; Wt 75.8 kg
[~2024-10-01 12:05] MED LIST changes: -AUG875T PO; -CYCL-837 PO; +HYDR-4902 PO; -IBUP-1455 PO; -PREN-96 PO; -PRENCAP75 OR; +RISP3TAB44 PO
--- NOTE | 2024-10-01 15:35 | ED.PDOC ---
Musculoskeletal HPI Comments Vitals: temperature of 97.9F, pulse of 100, respiratory rate of 20, blood pressure of 132/85, SpO2 of 99%RA Past medical history: anxiety, asthma, depression, schizophrenia Past surgical history: HPI: Poor Historian. REVIEW OF SYSTEMS: CONSTITUTIONAL: Denies acute: fever, diaphoresis, chills, generalized weakness. HEAD: Denies acute: headache, photophobia Eyes: Denies acute: Double vision, vision loss, eye pain, eye discharge. EARS: Denies acute: tinnitus, hearing loss, ear discharge, ear pain, THROAT: Denies acute: sore throat, swelling, difficulty swallowing , pain with swallowing, change in voice. NECK: Denies acute: neck pain, neck swelling, stiff neck. HEART: Denies acute : chest pain, palpitations, LUNGS: Denies acute: SOB, wheezing, cough, hemoptysis ABDOMEN: Denies acute: abdominal pain, Nausea, Vomiting, diarrhea, melena , hematemesis, hematochezia SKIN: Denies acute: rash, redness, lesions, itchiness. EXTREMITIES: Denies acute: calf pain, numbness, tingling, weakness, Denies acute: Low back pain. Neuro: Denies acute: focal neurological deficit, motor or sensory focal neurological deficit, tremors, seizure like activity, confusion, dizziness, change in mental status, loss of bowel or bladder function, cauda equina like symptoms. : Denies acute: dysuria, hematuria, flank pain, increase in urinary frequency. PSYCH: Denies acute: hallucination, suicidal ideation, homicidal ideation. FEMALE: Denies acute: abnormal vaginal bleeding, foul odor, unusual discharge. PHYSICAL EXAM: General: -----mild---acute distress, awake and alert. Head: normocephalic, atraumatic. Neck: supple, trachea is midline, no swelling. Throat: Normal phonation. Eyes:, no erythema, no purulent discharge, no proptosis, no icterus. Heart: regular rate, regular rhythm, no significant murmur appreciated. Lungs: no apparent respiratory distress, Able to speak in full sentences. No wheezing, no rhonchi, no crackles. No stridors Clear to auscultation bilaterally. Abdomen: non tender to palpation, non distended, soft, no guarding, no rebound, + bowel sounds. Neuro: Awake, Alert, oriented to name, self, situation, follows commands GCS=15. Speech is normal. Skin: no petechia, no purpura, no cyanosis, non-pale, not jaundice. Evaluation of the affected extremity: Patient has a splint on her right lower extremity status post surgery recently. Toes are not purple and are not discolored. Normal color toes. Normal capillary refill. Makes eye contact. moves all four extremities. Face: no apparent facial droop. ED COURSE: DISCLAIMER: This medical document was created using an electronic medical record system with voice recognition software and computerized dictation system. Although this document has been carefully reviewed, there might still be some phonetic and typographical errors. Occasional wrong-word or "sound-alike" substitutions may have occurred due to the inherent limitations of voice recognition software. These areas are purely typographical due to imperfections of the software programs and do not reflect any compromise in the patient's medical care. Please read the chart carefully and recognize, using context, where these substitutions have occurred. Chief Complaint: Lower Extremity Time Seen by MD: 14:15 Reviewed Notes: Nurses Notes, Allergies Allergies: Coded Allergies: Meperidine (Verified Allergy, Unknown, 05/22/15) Home Meds Active Scripts Hydrocodone-Acetaminophen (Hydrocodone Bitartrate/AC 5-325 mg) 1 Tab Tab, 1 TAB PO Q4HP PRN for 14 Days, #70 TAB Prov:SHOSHANA VASQUEZ MD 09/24/24 Reported Medications Risperidone (Risperidone) 3 Mg Tab, 1 TAB PO DAILY 09/20/24 Information Source: Patient Mode of Arrival: EMS Location: Right Past Medical History PAST MEDICAL HISTORY: Anxiety, Asthma, Depression, Schizophrenia Surgical History: GRADER PATROL History: No Pertinent GRADER PATROL History Family History Family History: Unknown Social History Smoker: Cigarettes Alcohol: Occasionally Drugs: Methamphetamine Lives In: Home Was a procedure done? Was a procedure done?: No Differential Diagnosis EXT Differential Diagnosis: Deep Vein Thrombosis, Compartment Syndrome, Fracture, Sprain, Laceration, Contusion, Strain, Septic, Neurovascular injury X-Ray, Labs, Meds, VS Vital Signs Date Time Temp Pulse Resp B/P (MAP) Pulse Ox O2 Delivery O2 Flow Rate FiO2 10/01/24 12:14 97.9 100 20 132/85 (101) 99 97.9 [place] [id number] [facility] [id number] Ph: [phone] DIAGNOSTIC IMAGING Diagnostic Imaging Report : [id number] Signed PATIENT: JOHN DOUGLAS ACCT: [id number] UNIT: [id number] : 1990 LOC: ER ROOM / BED: / AGE / SEX: 34 / F ADM STATUS: [facility]P ER SERVICE 4105 ORDERING PHYSICIAN: LUCERO CONTRERAS DO PROCEDURE(s): RTBFB - R TIB FIB XRAY REASON: RIGHT LEG PAIN ORDER NUMBER(s): [id number], ACCESSION NUMBER(s): [id number] XY R TIB FIB XRAY, INDICATION: RIGHT LEG PAIN TECHNICAL DATA: Frontal and lateral views were obtained of the right leg. COMPARISON: XY R TIB FIB XRAY on DOS: 09/22/24, XY R TIB FIB XRAY on DOS: 09/20/24 FINDINGS: Tibia intramedullary hardware appears intact and in good alignment from a mid shaft tibia fracture. A cast is seen. IMPRESSION: Tibia intramedullary hardware appears intact and in good alignment from a mid shaft tibia fracture. ATED BY: OH MCGOVERN MD DICTATED DATE/TIME: 10/01/24 1559 SIGNED BY: OH MCGOVERN MD SIGNED DATE/TIME: 10/01/24 1559 CC: Time of 1ST Reevaluation: 14:45 Reevaluation 1ST: Unchanged Patient Education/Counseling: Diagnosis, Treatment Family Education/Counseling: No Family Present Comments Patient presented with the above HPI.--postoperative pain----workup was initiated. patient was found with the above mentioned diagnosis. the following medications were ordered: please refer to order lists of meds and tests obtained by myself Dr. Contreras. Patient ED course and VS have been stabilized. Patient has been reassessed in the ED and remained in a stable condition. Pertinent incidental findings were discussed with the patient and/or family. Patient/family voices understanding and is agreeable with plan. Patient has been observed in the ED adequate length of time to insure improvement/stability. Escalation of care considered: Consideration of escalation to observation or admission Patient is homeless and has no outpatient close follow up. I will place her in the hospital for orthopedic evaluation. Patient was ADMITTED to the medicine team for further evaluation and treatment of their presentation. All the reports of any imaging studies that were ordered by myself were reviewed by myself. Departure 1 Departure Time of Disposition: 16:28 Impression: Primary Impression: Postoperative pain Disposition: ADMITTED INPATIENT Admit to: Tele Condition: Guarded Additional Instructions: Additional instructions: You MUST follow-up with your primary care/family doctor in 1 to 2 days. If you are unable to see your primary care/family doctor, please return to our emergency room for re-assessment and re-evaluation in 1 to 2 days. Return to the emergency room here in our facility or to the nearest ER [facility] if your symptoms change or worsen. CONSULTATIONS: you MUST Follow-up for consultation as soon as possible with: -orthopedic doctor in 1-2 days. Please call for appointment. You MUST call the consultants office yourself to make an appointment. You may need to arrange that through your insurance and/or your primary/family doctor. If you are unable to see the wound care center consultant in 1 to 2 days, you must return to our emergency room (or any other ER of your choice) for re-assessment and re- evaluation. Adequate fluid hydration. Below is a copy of your radiological report for follow up: [place] [address] Ph: [phone] DIAGNOSTIC IMAGING Diagnostic Imaging Report : [id number] Signed PATIENT: JOHN DOUGLAS ACCT: [id number] UNIT: [id number] : 1990 LOC: ER ROOM / BED: / AGE / SEX: 34 / F ADM STATUS: [facility] ER SERVICE 4149 ORDERING PHYSICIAN: LUCERO CONTRERAS DO PROCEDURE(s): RTBFB - R TIB FIB XRAY REASON: RIGHT LEG PAIN ORDER NUMBER(s): [id number], ACCESSION NUMBER(s): [id number] XY R TIB FIB XRAY, INDICATION: RIGHT LEG PAIN TECHNICAL DATA: Frontal and lateral views were obtained of the right leg. COMPARISON: XY R TIB FIB XRAY on DOS: 09/22/24, XY R TIB FIB XRAY on DOS: 09/20/24 FINDINGS: Tibia intramedullary hardware appears intact and in good alignment from a mid shaft tibia fracture. A cast is seen. IMPRESSION: Tibia intramedullary hardware appears intact and in good alignment from a mid shaft tibia fracture. ATED BY: OH MCGOVERN MD DICTATED DATE/TIME: 10/01/24 1559 SIGNED BY: OH MCGOVERN MD SIGNED DATE/TIME: 10/01/24 1559 CC: Discharged With: Self Critical Care Note Critical Care Time?: No I personally scribed for LUCERO CONTRERAS DO ([email or web address]) on 10/01/24 at 15:35. Tavia ctronically submitted by Abundio Gilbert ([email or web address]). I personally scribed for LUCERO CONTRERAS DO ([email or web address]) on 10/01/24 at 20:47. Electronically submitted by Abundio Gilbert ([email or web address]). LUCERO CONTRERAS DO Oct 01, 2024 15:35
--- NOTE | 2024-10-01 16:02 | DVH ---
XY R TIB FIB XRAY, INDICATION: RIGHT LEG PAIN TECHNICAL DATA: Frontal and lateral views were obtained of the right leg. COMPARISON: XY R TIB FIB XRAY on DOS: 09/22/24, XY R TIB FIB XRAY on DOS: 09/20/24 FINDINGS: Tibia intramedullary hardware appears intact and in good alignment from a mid shaft tibia fracture. A cast is seen. IMPRESSION: Tibia intramedullary hardware appears intact and in good alignment from a mid shaft tibia fracture.
[2024-10-01] MEDS ORDERED: ONDANSETRON HCL 4 MG/2 ML VIAL IV PRN (22:30)
[2024-10-01] MEDS ORDERED: ACETAMINOPHEN 325 MG TAB PO PRN (22:30)
[2024-10-01] MEDS ORDERED: DOCUSATE SOD 100 MG CAP PO PRN (22:30)
[2024-10-01 23:00] LABS: Basophils # (auto) 0.1 10 ^3/uL (0-0.2); Basophils % (auto) 0.9 % (0.0-2.0); Eosinophils # (auto) 0.3 10 ^3/uL (0-0.8); Eosinophils % (auto) 2.8 % (0.0-7.0); Hematocrit 37.9 % (36.0-46.0); Hemoglobin 12.9 g/dL (12.2-16.2); Lymphocytes # (auto) 2.4 10 ^3/uL (0.4-5.4); Lymphocytes % (auto) 22.3 % (10.0-50.0); Mean Corpuscular Hemoglobin 30.8 pg (28.0-32.0); Mean Corpuscular Volume 90.5 fL (80.0-100.0); Monocytes # (auto) 0.7 10 ^3/uL (0-1.3); Monocytes % (auto) 6.6 % (0.0-12.0); Neutrophils # (auto) 7.3 10 ^3/uL (1.6-8.6); Neutrophils % (auto) 67.4 % (37.0-80.0); Platelet Count (auto) 417 10^3/uL (140-450); Red Blood Cells 4.19 10^6/uL (4.0-5.20); Red Cell Distribution Width 12.9 % (11.8-14.3); White Blood Cell 10.8 10^3/uL (4.4-10.8)
[2024-10-01 23:07] LABS: Alanine Aminotransferase 11 U/L (7-40); Albumin 4.6 g/dL (3.2-4.8); Alkaline Phosphatase 80 U/L (46-116); Anion Gap 9 (5-15); Aspartate Aminotransferase 17 U/L (<34); Bilirubin, Total 0.7 mg/dL (0.2-1.0); Blood Urea Nitrogen 19 mg/dL (9-23); Carbon Dioxide 28 mmol/L (20-31); Chloride 104 mmol/L (98-107); Potassium 3.9 mmol/L (3.5-5.1); Sodium 141 mmol/L (136-145)
[2024-10-01 23:09] LABS: Calcium 10.8 mg/dL (8.7-10.4); Glucose 134 mg/dL (74-106)
--- NOTE | 2024-10-01 23:10 | DVH ---
Clinical History: post operative pain Comparison: US RT LOWER DVT on DOS: 09/20/24 Technique: Duplex Doppler evaluation of the deep venous system of the right lower extremity from the common femo ral vein to the popliteal vein including color Doppler and spectral/pulsed waveform analysis was perf ormed. Findings: The common femoral vein demonstrates appropriate compressibility and waveform variability. There is compressibility/patency of the great saphenous vein at the proximal thigh. The femoral vein demonstrates appropriate compressibility and waveform variability. The deep femoral vein demonstrates appropriate compressibility and waveform variability. The popliteal vein popliteal vein and distal not visualized due to leg cast. . Impression: 1. No right deep venous thrombosis. 2. If clinical concern/symptoms persist or worsen, short-interval follow-up study is suggested. HS:Y
--- NOTE | 2024-10-01 23:38 | DVHHP2 ---
History of Present Illness Reason for Visit: Postoperative pain History of Present Illness The patient is a 34-year-old female with past medical history of asthma, anxiety, depression, and schizophrenia who presented to [facility] ED with evaluation of postoperative pain rating 8/10 numeric scale. Patient reports she sustained injury with closed right tibia shaft fracture with superficial skin break but no deep tissue evaluation bone exposure and underwent open reduction internal fixation of right tibia fracture on September 22, 2024 with no complication. Patient was seen and evaluated in the ED, laboratory data shows WBC 10.8, platelets 417, sodium 141, potassium 3.9, BUN 19, creatinine 0.73, g lucose 134, calcium 10.8, blood pressure 132/85, heart rate 100, temperature 97.9 F, O2 saturation 99% on room air. Patient was given morphine sulfate 2 mg IV x1, please see medication orders section in the computer. On my assessment, patient denied chest pain, no headache, no dizziness, no diaphoresis, no shortness of breath, no nausea, no vomiting, no fever, no chills. Patient was admitted for further evaluation and medical management. Past Medical History Anxiety, Asthma, Depression, Schizophrenia Past Surgical History , ORIF Family History Reviewed, noncontributory to the management of this case. Past Social History The patient lives at home, smokes cigarettes, drinks alcohol occasionally, uses methamphetamine. Review of Systems Constitutional: Yes: Weakness; No: Fever, Chills, Sweats, Malaise, Other Eyes: No: Pain, Vision change, Conjunctivae inflammation, Eyelid inflammation, Other, Redness ENT: No: Ear pain, Ear discharge, Nose pain, Nose discharge, Nose congestion, Mouth pain, Mouth swelling, Throat pain, Throat swelling, Other Respiratory: No: Cough, Dry, Shortness of breath, SOB with excertion, Wheezing, Hemoptysis, Pleuritic Pain, Sputum, Wheezing, Other Cardiovascular: No: Chest Pain, Palpitations, Orthopnea, Paroxysmal Noc. Dyspnea, Edema, Lt Headedness, Other Gastrointestinal: No: Nausea, Vomiting, Abdominal Pain, Diarrhea, Constipation, Melena, Hematochezia, Other Genitourinary: No Dysuria, No Frequency, No Incontinence, No Hematuria, No Retention, No Other Musculoskeletal: other (Right leg pain); No: neck pain, shoulder pain, arm pain, back pain, hand pain, leg pain, foot pain Skin: No: Rash, Lesions, Jaundice, Bruising, Other Neurological: No: Weakness, Numbness, Incoordination, Change in speech, Confusion, Seizures, Other Allergies: Coded Allergies: Meperidine (Verified Allergy, Unknown, 05/22/15) Medications Current Medications Medications Dose Ordered Sig/Monique Route Start Time Stop Time Status Last Admin Dose Admin Sodium Chloride 1,000 ml @ 60 mls/hr [id number] IV 10/01/24 22:30 Acetaminophen/ Hydrocodone Bitart 1 tab Q4HP PRN PO 10/01/24 22:30 Ondansetron HCl 4 mg Q4HP PRN IV 10/01/24 22:30 Docusate Sodium 100 mg BIDPRN PRN PO 10/01/24 22:30 Acetaminophen 650 mg Q6HP PRN PO 10/01/24 22:30 Exam Vital Signs Vital Signs Date Time Temp Pulse Resp B/P (MAP) Pulse Ox O2 Delivery O2 Flow Rate FiO2 10/01/24 12:14 97.9 100 20 132/85 (101) 99 97.9 General Appearance: Alert, Oriented X3, Cooperative, No acute distress HEENT: Atraumatic, PERRLA, EOMI, Mucous membr. moist/pink Respiratory: Normal air movement Cardiovascular: Regular rate, Normal S1, Normal S2, No murmurs Abdominal: Normal bowel sounds, Soft, No tenderness, No hepatospenomegaly, No masses Extremities: No clubbing, No cyanosis, No edema, Normal pulses, Other (Right leg tenderness) Skin: No rashes, No breakdown, No significant lesion Neuro: Normal speech, Normal tone, Sensation intact, Cranial nerves 3-12 NL, Reflexes 2+, Other (Unsteady gait) Psych/Mental Status: Mental status NL, Mood NL Labs/Xrays Labs Test 10/01/24 22:40 Range/Units White Blood Count 10.8 4.4-10.8 10^3/uL Red Blood Count 4.19 4.0-5.20 10^6/uL Hemoglobin 12.9 12.2-16.2 g/dL Hematocrit 37.9 36.0-46.0 % Mean Corpuscular Volume 90.5 80.0-100.0 fL Mean Corpuscular Hemoglobin 30.8 28.0-32.0 pg Mean Corpuscular Hemoglobin Concent 34.0 32.0-36.0 g/dL Red Cell Distribution Width 12.9 11.8-14.3 % Platelet Count 417 140-450 10^3/uL Mean Platelet Volume 9.6 6.9-10.8 fL Neutrophils (%) (Auto) 67.4 37.0-80.0 % Lymphocytes (%) (Auto) 22.3 10.0-50.0 % Monocytes (%) (Auto) 6.6 0.0-12.0 % Eosinophils (%) (Auto) 2.8 0.0-7.0 % Basophils (%) (Auto) 0.9 0.0-2.0 % Neutrophils # (Auto) 7.3 1.6-8.6 10 ^3/uL Lymphocytes # (Auto) 2.4 0.4-5.4 10 ^3/uL Monocytes # (Auto) 0.7 0-1.3 10 ^3/uL Eosinophils # (Auto) 0.3 0-0.8 10 ^3/uL Basophils # (Auto) 0.1 0-0.2 10 ^3/uL Nucleated Red Blood Cells 0.0 % Sodium Level 141 136-145 mmol/L Potassium Level 3.9 3.5-5.1 mmol/L Chloride Level 104 98-107 mmol/L Carbon Dioxide Level 28 20-31 mmol/L Anion Gap 9 5-15 Blood Urea Nitrogen 19 9-23 mg/dL Creatinine 0.73 0.550-1.02 mg/dL Glomerular Filtration Rate Calc 111 >90 mL/min BUN/Creatinine Ratio 26.0 H 10.0-20.0 Serum Glucose 134 H 74-106 mg/dL Calcium Level 10.8 H 8.7-10.4 mg/dL Total Bilirubin 0.7 0.2-1.0 mg/dL Aspartate Amino Transferase (AST) 17 <34 U/L Alanine Aminotransferase (ALT) 11 7-40 U/L Alkaline Phosphatase 80 46-116 U/L Total Protein 8.0 5.7-8.2 g/dL Albumin 4.6 3.2-4.8 g/dL PATIENT: JOHN DOUGLAS ACCT: [id number] UNIT: [id number] : 1990 LOC: ER ROOM / BED: / AGE / SEX: 34 / F ADM STATUS: REG ER SERVICE ORDERING PHYSICIAN: LUCERO CONTRERAS DO PROCEDURE(s): RLDVT - RT Lower DVT REASON: post operative pain ORDER NUMBER(s): [id number], ACCESSION NUMBER(s): [id number] Clinical History: post operative pain Comparison: US RT LOWER DVT on DOS: 09/20/24 Technique: Duplex Doppler evaluation of the deep venous system of the right lower extremity from the common femoral vein to the popliteal vein including color Doppler and spectral/pulsed waveform analysis was performed. Findings: The common femoral vein demonstrates appropriate compressibility and waveform variability. There is compressibility/patency of the great saphenous vein at the proximal thigh. The femoral vein demonstrates appropriate compressibility and waveform variability. The deep femoral vein demonstrates appropriate compressibility and waveform variability. The popliteal vein popliteal vein and distal not visualized due to leg cast. Impression: 1. No right deep venous thrombosis. 2. If clinical concern/symptoms persist or worsen, short-interval follow-up study is suggested. Assessment/Plan Assessment/Plan Postoperative pain Generalized weakness Plan 1. Admit to telemetry unit 2. Breathing treatment 3. Pain control management 4. Management of fluids and electrolytes 5. Consultation for hospitalist 6. Diagnostic tests tibia/fibula x-ray 7. DVT prophylaxis-on Lovenox 8. Repeat labs CBC, CMP in a.m. 9. Continue with current medical management 10. Treatment plan discussed with patient and RN. Patient verbalized understanding. Plan discussed with: Patient, Other (RN) My Orders Orders - DANNA CORRAL DNP Procedure Category Date Status Time Allergies STEPHAN 10/01/24 In Process 22:28 Code Status CODE 10/01/24 Transmitted 22:28 Sodium Chloride 0.9% PHA 10/01/24 In Process 22:30 Oxygen Per Hour RT 10/01/24 Transmitted 22:28 Hydrocodone-Acet PHA 10/01/24 In Process 5/325mg Tab ([place] 22:30 Ondansetron Hcl PHA 10/01/24 In Process (Zofran) 22:30 Docusate Sodium PHA 10/01/24 In Process Capsule (Colace 22:30 Complete Blood Count LAB 10/02/24 Verified 04:00 Comprehensive LAB 10/02/24 Verified Metabolic Panel 04:00 Cardiac DIET 10/02/24 Transmitted Diet-2gna,Lofat,Lochol Breakfast Condition: Serious [facility] 10/01/24 In Process 22:28 Acetaminophen Tablet [facility] 10/01/24 In Process (Tylenol Tablet) 22:30 Bedrest With Bathroom [facility] 10/01/24 In Process Privileg 22:28 Sequential [facility] 10/01/24 In Process Compression Device Apixaban (Eliquis) [facility] 10/02/24 Verified 10:00 Admit ADMIT 10/01/24 Verified 23:36 Nitroglycerin [facility] 10/01/24 Verified Sublingual (Ntrostat 23:45 Morphine Sulfate [facility] 10/01/24 Verified Injection 23:45 Stat Ekg For Chest [facility] 10/01/24 Verified Pain 23:36 Notify Md Of Changes [facility] 10/01/24 Verified From Base 23:36 Supervisor Esters And Emulsifiers For [facility] 10/01/24 Verified 24 Hours 23:36 Emergency Dysrhythmia [facility] 10/01/24 Verified Protocol 23:36 Rhythm Strips Once [facility] 10/01/24 Verified Every Shift 23:36 Oxygen By Nasal 10/01/24 Verified Cannula 23:36 Problem List: (1) Postoperative pain (2) Generalized weakness Date of Service: Oct 01, 2024 Billing Provider: DANNA CORRAL DNP Common Visit Codes: [id number] INP/OBS CARE (HIGH) DANNA CORRAL DNP Oct 01, 2024 23:38
[2024-10-01] MEDS ORDERED: NITROGLYCERIN 0.4 MG SL TAB SL PRN (23:45)
[2024-10-01] MEDS ORDERED: MORPHINE SULFATE INJ 2 MG/ml SYRG IV PRN (23:45)
[2024-10-02] VITALS (8 sets, daily range): BP systolic 102–132; BP diastolic 56–86; PULSE 76–91; RESP 17–20; TEMP 96.8–97.7; O2SAT 98–99
[2024-10-02] MEDS: HYDROcodone-ACET 5/325MG TAB PO PRN (02:35)
[2024-10-02] MEDS: SODIUM CHLORIDE 0.9% 1,000 ML IV SCH (05:06)
[2024-10-02 05:15] LABS: Basophils # (auto) 0 10 ^3/uL (0-0.2); Basophils % (auto) 0.5 % (0.0-2.0); Eosinophils # (auto) 0.3 10 ^3/uL (0-0.8); Eosinophils % (auto) 2.8 % (0.0-7.0); Hematocrit 33.7 % (36.0-46.0); Hemoglobin 11.6 g/dL (12.2-16.2); Lymphocytes # (auto) 2.6 10 ^3/uL (0.4-5.4); Lymphocytes % (auto) 25.7 % (10.0-50.0); Mean Corpuscular Hgb Conc. 34.4 g/dL (32.0-36.0); Mean Corpuscular Volume 90.1 fL (80.0-100.0); Monocytes # (auto) 0.7 10 ^3/uL (0-1.3); Monocytes % (auto) 7.4 % (0.0-12.0); Neutrophils # (auto) 6.4 10 ^3/uL (1.6-8.6); Neutrophils % (auto) 63.6 % (37.0-80.0); Platelet Count (auto) 382 10^3/uL (140-450); Red Blood Cells 3.74 10^6/uL (4.0-5.20); Red Cell Distribution Width 12.7 % (11.8-14.3); White Blood Cell 10.1 10^3/uL (4.4-10.8)
[2024-10-02 05:26] LABS: Alanine Aminotransferase 10 U/L (7-40); Alkaline Phosphatase 68 U/L (46-116); Anion Gap 10 (5-15); Aspartate Aminotransferase 14 U/L (<34); BUN/Creatinine Ratio 29.9 (10.0-20.0); Blood Urea Nitrogen 23 mg/dL (9-23); Calcium 9.8 mg/dL (8.7-10.4); Carbon Dioxide 27 mmol/L (20-31); Chloride 105 mmol/L (98-107); Potassium 3.6 mmol/L (3.5-5.1); Sodium 142 mmol/L (136-145); Total Protein 6.8 g/dL (5.7-8.2)
[2024-10-02 05:27] LABS: Bilirubin, Total 0.5 mg/dL (0.2-1.0)
[2024-10-02 05:30] LABS: Glucose 113 mg/dL (74-106)
[2024-10-02] MEDS ORDERED: APIXABAN 5 MG TAB PO SCH (10:00)
[2024-10-02] MEDS: ENOXAPARIN SOD 40 MG/0.4 ML SYRINGE SC SCH (10:00)
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
[2024-10-02] MEDS: DOCUSATE SOD 100 MG CAP PO ONE (13:45)
--- NOTE | 2024-10-02 15:51 | DVH ---
CLINICAL INDICATION: trauma TECHNIQUE: XY R FOOT 3 VIEW XRAY Comparison: None FINDINGS/IMPRESSION: : There is no evidence of acute fracture or dislocation. Soft tissues are unremarkable.
[2024-10-02] MEDS: risperiDONE 1 MG TAB PO SCH (21:38)
[2024-10-02] MEDS: DOCUSATE SOD 100 MG CAP PO SCH (21:38)
[2024-10-02 22:16] LABS: Amphetamine Screen, Urine Pos (NEGATIVE); Barbiturate Scree,Urine Neg (NEGATIVE); Benzodiazephine Screen, Urine Neg (NEGATIVE); Opiate Scree,Urine Neg (NEGATIVE)
[2024-10-02 22:17] LABS: Cocaine Screen, Urine Neg (NEGATIVE); Phencyclidine Screen, Urine Pos (NEGATIVE)
[2024-10-02 22:19] LABS: Cannabinoid Screen, Urine Neg (NEGATIVE)
[2024-10-03] VITALS (8 sets, daily range): BP systolic 91–105; BP diastolic 47–67; PULSE 72–108; RESP 16–18; TEMP 97.6–98.6; O2SAT 96–99
[2024-10-04] VITALS (7 sets, daily range): BP systolic 91–105; BP diastolic 49–60; PULSE 63–82; RESP 14–16; TEMP 97.6–98.6; O2SAT 93–100
[2024-10-04 05:08] LABS: HSV 1 IgG Antibody Reactive (Non Reactive); HSV 2 IgG Antibody Non Reactive (Non Reactive)
--- NOTE | 2024-10-04 13:44 | DVHPN2 ---
Reviewed: Care Plan Changes from previous H/P or p: No Changes General: Per HPI Eyes: No Pain, No Vision change, No Conjunctivae inflammation, No Eyelid inflammation, No Other, No Redness ENT: No Ear pain, No Ear discharge, No Nose pain, No Nose discharge, No Nose congestion, No Mouth pain, No Mouth swelling, No Throat pain, No Throat swelling, No Other Cardiovascular: No Chest Pain, No Palpitations, No Orthopnea, No Paroxysmal Noc. Dyspnea, No Edema, No Lt Headedness, No Other Respiratory: No Cough, No Dry, No Shortness of breath, No SOB with excertion, No Wheezing, No Hemoptysis, No Pleuritic Pain, No Sputum, No Other Gastrointestinal: No Nausea, No Vomiting, No Abdominal Pain, No Diarrhea, No Constipation, No Melena, No Hematochezia, No Other Genitourinary: No Dysuria, No Frequency, No Incontinence, No Hematuria, No Retention, No Other Musculoskeletal: other (Right leg pain); No neck pain, No shoulder pain, No arm pain, No back pain, No hand pain, No leg pain, No foot pain Skin: No Rash, No Lesions, No Jaundice, No Bruising, No Other Objective Vitals Vital Signs Date Time Temp Pulse Resp B/P (MAP) Pulse Ox O2 Delivery O2 Flow Rate FiO2 10/04/24 13:00 97.6 82 16 105/49 (67) 98 97.6 10/04/24 08:00 Room Air* 0 21 Intake/Output Intake and Output 10/04/24 07:00 Intake Total 1980 ml Balance 1980 ml Intake Oral 1980 ml # Voids 3 General Appearance: Alert, Oriented X3, Cooperative, No acute distress Lungs: Clear to auscultation Cardiovascular: Regular rate, Normal S1, Normal S2 Abdomen: Normal bowel sounds, Soft, No tenderness, No hepatospenomegaly Musculoskeletal: Normal sensory function, Normal motor function Neuro: Normal speech, Strength at 5/5 X4 ext, Normal tone, Sensation intact, C ranial nerves 3-12 NL Medications Current Medications Medications Dose Ordered Sig/Monique Route Start Time Stop Time Status Last Admin Dose Admin Acetaminophen/ Hydrocodone Bitart 1 tab Q4HP PRN PO 10/01/24 22:30 10/04/24 08:37 1 TAB Docusate Sodium 100 mg BIDPRN PRN PO 10/01/24 22:30 Acetaminophen 650 mg Q6HP PRN PO 10/01/24 22:30 Enoxaparin Sodium 40 mg DAILY SC 10/02/24 10:00 10/03/24 09:33 40 MG Risperidone 1 mg HS PO 10/02/24 22:00 10/03/24 21:19 1 MG Docusate Sodium 100 mg BID PO 10/02/24 22:00 10/04/24 08:37 100 MG Laboratory Results Laboratory Tests 10/02/24 04:11 Microbiology Microbiology Date/Time Source Procedure Growth Status 10/02/24 03:00 Nose MRSA Screen - Final Complete Labs and/or images reviewed: Labs reviewed by me, Image(s) reviewed by me Assessment/Plan Assessment/Plan Postoperative pain Generalized weakness s/p recent tibial fracture leg contusion check xray oral ulcer evaluate schizophrenia pain control consult ortho to re-evaluate Plan discussed with: Patient Date of Service: Oct 03, 2024 Billing Provider: BRANDON LOWE DO Common Visit Codes: [id number] INP/OBS CARE(HIGH) BRANDON OLWE DO Oct 04, 2024 13:44
[2024-10-04] MEDS ORDERED: NAP500T PO (13:47)
--- NOTE | 2024-10-04 13:48 | DVHDS2 ---
Discharge Summary Date of Admission Oct 01, 2024 at 23:36 Date of Discharge: Oct 04, 2024 Labs/Diagnostic Data: Laboratory Results Test 10/02/24 21:30 10/02/24 16:08 10/02/24 04:11 Urine Opiates Screen Neg (NEGATIVE) Urine Fentanyl Screen Neg (NEGATIVE) Urine Barbiturates Screen Neg (NEGATIVE) Urine Phencyclidine Screen Pos (NEGATIVE) Urine Amphetamines Screen Pos (NEGATIVE) Urine Benzodiazepines Screen Neg (NEGATIVE) Urine Cocaine Screen Neg (NEGATIVE) Urine Cannabinoids Screen Neg (NEGATIVE) Herpes Simplex Virus I IgG Antibody Reactive (Non Reactive) Herpes Simplex Virus II IgG Ab Non reactive (Non Reactive) White Blood Count 10.1 10^3/uL (4.4-10.8) Red Blood Count 3.74 10^6/uL (4.0-5.20) Hemoglobin 11.6 g/dL (12.2-16.2) Hematocrit 33.7 % (36.0-46.0) Mean Corpuscular Volume 90.1 fL (80.0-100.0) Mean Corpuscular Hemoglobin 31.0 pg (28.0-32.0) Mean Corpuscular Hemoglobin Concent 34.4 g/dL (32.0-36.0) Red Cell Distribution Width 12.7 % (11.8-14.3) Platelet Count 382 10^3/uL (140-450) Mean Platelet Volume 9.7 fL (6.9-10.8) Neutrophils (%) (Auto) 63.6 % (37.0-80.0) Lymphocytes (%) (Auto) 25.7 % (10.0-50.0) Monocytes (%) (Auto) 7.4 % (0.0-12.0) Eosinophils (%) (Auto) 2.8 % (0.0-7.0) Basophils (%) (Auto) 0.5 % (0.0-2.0) Neutrophils # (Auto) 6.4 10 ^3/uL (1.6-8.6) Lymphocytes # (Auto) 2.6 10 ^3/uL (0.4-5.4) Monocytes # (Auto) 0.7 10 ^3/uL (0-1.3) Eosinophils # (Auto) 0.3 10 ^3/uL (0-0.8) Basophils # (Auto) 0 10 ^3/uL (0-0.2) Nucleated Red Blood Cells 0.0 % Sodium Level 142 mmol/L (136-145) Potassium Level 3.6 mmol/L (3.5-5.1) Chloride Level 105 mmol/L (98-107) Carbon Dioxide Level 27 mmol/L (20-31) Anion Gap 10 (5-15) Blood Urea Nitrogen 23 mg/dL (9-23) Creatinine 0.77 mg/dL (0.550-1.02) Glomerular Filtration Rate Calc 104 mL/min (>90) BUN/Creatinine Ratio 29.9 (10.0-20.0) Serum Glucose 113 mg/dL (74-106) Calcium Level 9.8 mg/dL (8.7-10.4) Total Bilirubin 0.5 mg/dL (0.2-1.0) Aspartate Amino Transferase (AST) 14 U/L (<34) Alanine Aminotransferase (ALT) 10 U/L (7-40) Alkaline Phosphatase 68 U/L (46-116) Total Protein 6.8 g/dL (5.7-8.2) Albumin 4.0 g/dL (3.2-4.8) Monoscreen Negative HIV (1&2) Antibody Negative (Negative) Other Laboratory Tests 10/02/24 04:11 Brief Hx & Hospital Course: The patient is a 34-year-old female with past medical history of asthma, anxiety, depression, and schizophrenia who presented to [facility] ED with evaluation of postoperative pain rating 8/10 numeric scale. Patient reports she sustained injury with closed right tibia shaft fracture with superficial skin break but no deep tissue evaluation bone exposure and underwent open reduction internal fixation of right tibia fracture on September 22, 2024 with no complication. Patient was seen and evaluated in the ED, laboratory data shows WBC 10.8, platelets 417, sodium 141, potassium 3.9, BUN 19, creatinine 0.73, glucose 134, calcium 10.8, blood pressure 132/85, heart rate 100, temperature 97.9 F, O2 saturation 99% on room air. Patient was given morphine sulfate 2 mg IV x1, please see medication orders section in the computer. On my assessment, patient denied chest pain, no headache, no dizziness, no diaphoresis, no shortness of breath, no nausea, no vomiting, no fever, no chills. Patient was admitted for further evaluation and medical management. Postoperative pain Generalized weakness s/p recent tibial fracture leg contusion check xray oral ulcer evaluate schizophrenia discharged to home Condition at Discharge: Fair Final Diagnosis/Problems List see above Discharge Disposition: Home Discharge Instruct/Medications Diet: Cardiac 2g Na,low cholest Activity: No Restrictions, As Tolerated Discharge Statement: "Patient was advised to return to the ER or call 911 if any headaches, dizziness, shortness of breath, chest pain, abdominal pain, bleeding, fevers, or worsening of medical condition. Patient was counseled about treatment plan, medications, possible side effects, patientverbalized understanding. All questions were answered to the best of my ability. This discharge took greater then 30 minutes in planning, reviewing documentation, counseling the patient, and discussing with other team members." ASSESSMENT ASSESSMENT Assessment Date of Service: Oct 04, 2024 Billing Provider: BRANDON LOWE DO Common Visit Codes: [id number] DISCH DAY >30min BRANDON LOWE DO Oct 04, 2024 13:48
[2024-10-04] MEDS ORDERED: AMOX500T86 PO (14:59)
[2024-10-04] MEDS ORDERED: RIS1T PO (14:59)
== END 2024-10-04 18:55 | disposition home or self-care (01) | DRG 384 ==
LOC: ER 12:05 → EDBD 12:05 → ER 12:54 → OVERFLOW 23:36 → TELE-WESTW 10-02 02:10
PROVIDERS: ADMIT Internal Medicine; ATTEND Internal Medicine
DX: S80.11XA Contusion of right lower leg, initial encounter (principal); R71.0 Precipitous drop in hematocrit; G89.18 Other acute postprocedural pain; F15.90 Other stimulant use, unspecified, uncomplicated; K12.1 Other forms of stomatitis; F20.9 Schizophrenia, unspecified; F17.210 Nicotine dependence, cigarettes, uncomplicated; J45.909 Unspecified asthma, uncomplicated; F32.A Depression, unspecified; F41.9 Anxiety disorder, unspecified; X58.XXXA Exposure to other specified factors, initial encounter; Z98.891 History of uterine scar from previous surgery; Y93.89 Activity, other specified; Y92.89 Other specified places as the place of occurrence of the external cause; Y99.8 Other external cause status
CPT/HCPCS: 36415; 73590; 73630; 80053; 80307; 85025; 86308; 86695; 86696; 86703; 87081; 93971; G0378

== ENCOUNTER 2024-10-12 23:00 | Emergency (ER) | payer MEDICAID ==
[~2024-10-12] VITALS: Ht 160 cm; Wt 59.1 kg
[~2024-10-12 23:00] MED LIST changes: +AMOX500T86 PO; +NAP500T PO; +RIS1T PO
[2024-10-13] MEDS ORDERED: HYDR-4902 PO (02:05)
--- NOTE | 2024-10-13 02:07 | ED.PDOC ---
Musculoskeletal HPI Comments 34-year-old female brought in by EMS. Feeding complaining of right ankle and knee pain. Patient reports having orthopedic surgery one month ago. Had tibial ORIF done. States she saw veterinary milk specialist on Thursday. Dressings were changed. States in the entire month post surgery she has had no pain medications, only given ibuprofen. States she is having more intense pain and so she called EMS. Denies any fever or chills. Chief Complaint: Lower Extremity Time Seen by MD: 01:06 Reviewed Notes: Nurses Notes Allergies: Coded Allergies: Meperidine (Verified Allergy, Unknown, 05/22/15) Home Meds Active Scripts Risperidone (RisperDAL TABLET) 1 Mg Tb, 1 TAB PO QPM for 30 Days, #30 TAB 1 Refill Prov:BRANDON LOWE Shavon DO 10/04/24 Amoxicillin & Pot Clavulanate (Augmentin) 500 Mg Tab, 1 TAB PO BID for 7 Days, #14 TAB Prov:LOWEBRANDON Villavicencio Shavon DO 10/04/24 Naproxen (NAPROSYN TABLET) 500 Mg Tb, 1 TAB PO BID for 15 Days, #30 TAB 1 Refill Prov:BRANDON LOWE DO 10/04/24 Hydrocodone-Acetaminophen (Hydrocodone Bitartrate/AC 5-325 mg) 1 Tab Tab, 1 TAB PO Q4HP PRN for 14 Days, #70 TAB Prov:SHOSHANA VASQUEZ MD 09/24/24 Reported Medications Risperidone (Risperidone) 3 Mg Tab, 1 TAB PO DAILY 09/20/24 Information Source: Patient Mode of Arrival: EMS Past Medical History PAST MEDICAL HISTORY: Anxiety, Asthma, Depression, Schizophrenia Surgical History: SPRINKLING SYSTEM IRRIGATOR History: No Pertinent SPRINKLING SYSTEM IRRIGATOR History Family History Family History: Unknown Social History Smoker: Cigarettes Alcohol: Occasionally Drugs: Methamphetamine Lives In: Home Constitutional: denies: chills, diaphoresis, fatigue, fever, malaise, sweats, weakness, others EENTM: denies: blurred vision, double vision, ear bleeding, ear discharge, ear drainage, ear pain, ear ringing, eye pain, eye redness, hearing loss, mouth pain, mouth swelling, nasal discharge, nose bleeding, nose congestion, nose pain, photophobia, tearing, throat pain, throat swelling, voice changes, others Respiratory: denies: cough, hemoptysis, orthopnea, SOB at rest, shortness of breath, SOB with excertion, stridor, wheezing, others Cardiovascular: denies: chest pain, dizzy spells, diaphoresis, Dyspnea on exertion, edema, irregular heart beat, left arm pain, lightheadedness, palpitations, PND, syncope, others Gastrointestinal: denies: abdomen distended, abdominal pain, blood streaked bowels, constipated, diarrhea, dysphagia, difficulty swallowing, hematemesis, melena, nausea, poor appetite, poor fluid intake, rectal bleeding, rectal pain, vomiting, others Genitourinary: denies: abnormal vagina bleeding, burning, dyspareunia, dysuria, flank pain, frequency, hematuria, incontinence, pain, , vagina discharge, urgency, others Neurological: denies: dizziness, fainting, headache, left sided numbness, left sided weakness, numbness, paresthesia, pre-existing deficit, right sided numbness, right sided weakness, seizure, speech problems, tingling, tremors, weakness, others Musculoskeletal: denies: back pain, gout, joint pain, joint swelling, muscle pain, muscle stiffness, neck pain, others Integumetry: denies: bruises, change in color, change in hair/nails, dryness, laceration, lesions, lumps, rash, wounds, others Allergic/Immunocompromised: denies: Difficulty Healing, Frequent Infections, Hives, Itching, others Hematologic/Lymphatic: denies: anemia, blood clots, easy bleeding, easy bruising, swollen glands, others Endocrine: denies: excessive hunger, excessive sweating, excessive thirst, excessive urination, flushing, intolerance to cold, intolerance to heat, unexplained weight gain, unexplained weight loss, others Physical Exam General Appearance: No Apparent Distress, Normal HEENT: Normal ENT Inspection, Pharynx Normal, TMs Normal Neck: Full Range of Motion, Non-Tender, Normal, Normal Inspection Respiratory: Chest Non-Tender, Lungs Clear, No Accessory Muscle Use, No Respiratory Distress, Normal Breath Sounds Cardiovascular: No Edema, No JVD, No Murmur, No Gallop, Normal Peripheral Pulses, Regular Rate/Rhythm Breast Exam: Deferred Gastrointestinal: No Organomegaly, Non Tender, No Pulsatile Mass, Normal Bowel Sounds, Soft Genitalia: Deferred Pelvic: Deferred Rectal: Deferred Extremities: No calf tenderness, Normal capillary refill, Normal inspection, Normal range of motion, Non-tender, No pedal edema Musculoskeletal : Apperance: Normal Neurologic: Alert, 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 Was a procedure done?: No Differential Diagnosis EXT Differential Diagnosis: Cellulitis, Deep Vein Thrombosis, Compartment Syndrome, Fracture X-Ray, Labs, Meds, VS Vital Signs Date Time Temp Pulse Resp B/P (MAP) Pulse Ox O2 Delivery O2 Flow Rate FiO2 10/12/24 23:10 98.2 103 16 120/73 (89) 98 98.2 X-Ray, Labs, Meds, VS Comment Imaging: X-rays and CT scans were reviewed and interpreted by this provider, imaging shows no fractures and no pathological disease. Pending radiology review. Laboratory: Labs reviewed and interpreted by this provider. No significant abnormalities noted. Patient has prior medical visits reviewed. Med reconciliation performed Vital signs reviewed Time of 1ST Reevaluation: 02:07 Reevaluation 1ST: Improved Patient Education/Counseling: Diagnosis, Treatment, Need For Follow Up (Follow up in the emergency department in the next 24-48 hours if symptoms worsen. It was advised to follow up with your primary care doctor in the next 3-4 days for further evaluation.) Family Education/Counseling: Diagnosis Departure 1 Departure Time of Disposition: 02:03 Impression: Primary Impression: Right tibial fracture Qualified Codes: S82.221D - Displaced transverse fracture of shaft of right tibia, subsequent encounter for closed fracture with routine healing Disposition: 01 HOME / SELF CARE / HOMELESS Condition: Fair e-Prescriptions Hydrocodone-Acetaminophen (Hydrocodone Bitartrate/AC 5-325 mg) 1 Tab Tab 1 TAB PO TID PRN, #32 TAB Prov: DUKE DOUGLAS 10/13/24 Discharged With: Self Critical Care Note Critical Care Time?: No Stability Stability form required: No Heart Score Heart Score: Heart Score Response (Comments) Value History N/A 0 EKG N/A 0 Age N/A 0 Risk Factors N/A 0 Troponin N/A 0 Total 0 DUKE DOUGLAS Oct 13, 2024 02:07
[2024-10-13] MEDS: KETOROLAC TROMETH 30 MG/ML 1ML VIAL IM ONE (02:08)
[2024-10-13 02:09] VITALS: BP 115/65; PULSE 88; RESP 18; TEMP 97.8; O2SAT 100
--- NOTE | 2024-10-13 02:37 | DVH ---
EXAM: XY R ANKLE 2 VIEW XRAY HISTORY: pain COMPARISON: None TECHNIQUE: 2 views of the right ankle were performed. IMPRESSION: Limited examination in boot. Fixation hardware within the tibia. No acute fracture or dislocation. J oint spaces appear relatively preserved.
[2024-10-14] MEDS ORDERED: GABA300T4 PO (20:26)
== END 2024-10-13 03:16 | disposition home or self-care (01) ==
LOC: EDBD 23:00 → ER 23:00
DX: S82.291G Other fracture of shaft of right tibia, subsequent encounter for closed fracture with delayed healing (principal); F17.210 Nicotine dependence, cigarettes, uncomplicated; F20.9 Schizophrenia, unspecified; J45.909 Unspecified asthma, uncomplicated; Z79.899 Other long term (current) drug therapy; Z98.890 Other specified postprocedural states; Z88.5 Allergy status to narcotic agent; X58.XXXD Exposure to other specified factors, subsequent encounter
CPT/HCPCS: 73600; 96372; 99283; J1885

== ENCOUNTER 2024-10-14 18:18 | Emergency (ER) | payer MEDICAID ==
[~2024-10-14] VITALS: Ht 157.5 cm; Wt 56.4 kg
--- NOTE | 2024-10-14 18:24 | ED.PDOC ---
Musculoskeletal HPI Comments 34-year-old female with past medical history of asthma, anxiety, depression, schizophrenia, polysubstance abuse brought in by EMS from home for evaluation of ongoing left lower extremity postoperative pain. Patient sustained a closed right tibia shaft fracture with superficial skin break, underwent ORIF on September 22, 2024 with no complication. Patient readmitted October 01 for post op pain. States she is still non weight bearing. Pt was seen here in ED 2 d ago for RLE pain, was prescribed [place], which she states she took with only partial relief of pain. Patient states the current right knee pain and right medial leg pain started last night. She denies any new trauma, fever, or discoloration. Chief Complaint: Lower Extremity Time Seen by MD: 18:29 Reviewed Notes: Permit Agent Notes Allergies: Coded Allergies: Meperidine (Verified Allergy, Unknown, 05/22/15) Home Meds Active Scripts Gabapentin (Once-Daily) (Gabapentin) 300 Mg Tab, 300 MG PO TID PRN, #30 TAB prn pain Prov:DEL NÚÑEZ MD 10/14/24 Hydrocodone-Acetaminophen (Hydrocodone Bitartrate/AC 5-325 mg) 1 Tab Tab, 1 TAB PO TID PRN, #32 TAB Prov:DUKE DOUGLAS 10/13/24 Risperidone (RisperDAL TABLET) 1 Mg Tb, 1 TAB PO QPM for 30 Days, #30 TAB 1 Refill Prov:BRANDON LOWE DO 10/04/24 Amoxicillin & Pot Clavulanate (Augmentin) 500 Mg Tab, 1 TAB PO BID for 7 Days, #14 TAB Prov:BRANDON LOWE DO 10/04/24 Naproxen (NAPROSYN TABLET) 500 Mg Tb, 1 TAB PO BID for 15 Days, #30 TAB 1 Refill Prov:BRANDON LOWE DO 10/04/24 Hydrocodone-Acetaminophen (Hydrocodone Bitartrate/AC 5-325 mg) 1 Tab Tab, 1 TAB PO Q4HP PRN for 14 Days, #70 TAB Prov:SHOSHANA VASQUEZ MD 09/24/24 Reported Medications Risperidone (Risperidone) 3 Mg Tab, 1 TAB PO DAILY 09/20/24 Information Source: Patient, Emergency Med Personnel Mode of Arrival: EMS Location: Right Extremity Location: Knee, Leg Timing: Days Severity: Moderate Able to Move Extremity: No Bear Weight: No Pain: Moderate Hand Dominance: Right Past Medical History PAST MEDICAL HISTORY: Anxiety, Asthma, Depression, Schizophrenia Surgical History: Surgical History (Other): ORIF right leg last September 22, 2024 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 JET BLADE POLISHER History Family History Family History: Unknown Social History Smoker: Cigarettes Alcohol: Occasionally Drugs: Methamphetamine, Other (PCP) Lives In: Home Constitutional: denies: chills, diaphoresis, fatigue, fever, malaise, sweats, weakness, others EENTM: denies: blurred vision, double vision, ear bleeding, ear discharge, ear drainage, ear pain, ear ringing, eye pain, eye redness, hearing loss, mouth pain, mouth swelling, nasal discharge, nose bleeding, nose congestion, nose pain , photophobia, tearing, throat pain, throat swelling, voice changes, others Respiratory: denies: cough, hemoptysis, orthopnea, SOB at rest, shortness of breath, SOB with excertion, stridor, wheezing, others Cardiovascular: denies: chest pain, dizzy spells, diaphoresis, Dyspnea on exertion, edema, irregular heart beat, left arm pain, lightheadedness, palpitations, PND, syncope, others Gastrointestinal: denies: abdomen distended, abdominal pain, blood streaked bowels, constipated, diarrhea, dysphagia, difficulty swallowing, hematemesis, melena, nausea, poor appetite, poor fluid intake, rectal bleeding, rectal pain, vomiting, others Genitourinary: denies: abnormal vagina bleeding, burning, dyspareunia, dysuria, flank pain, frequency, hematuria, incontinence, pain, , vagina discharge, urgency, others Neurological: denies: dizziness, fainting, headache, left sided numbness, left sided weakness, numbness, paresthesia, pre-existing deficit, right sided numbness, right sided weakness, seizure, speech problems, tingling, tremors, weakness, others Musculoskeletal: reports: joint pain (right knee), muscle pain (right lower leg); denies: back pain, gout, joint swelling, muscle stiffness, neck pain, others Integumetry: denies: bruises, change in color, change in hair/nails, dryness, laceration, lesions, lumps, rash, wounds, others Allergic/Immunocompromised: denies: Difficulty Healing, Frequent Infections, Hives, Itching, others Hematologic/Lymphatic: denies: anemia, blood clots, easy bleeding, easy bruising, swollen glands, others Endocrine: denies: excessive hunger, excessive sweating, excessive thirst, excessive urination, flushing, intolerance to cold, intolerance to heat, unexplained weight gain, unexplained weight loss, others Psychiatric: reports: anxiety; denies: bipolar disorder, depression, hopeless, panic disorder, schizophrenia, sleepless, suicidal, others Physical Exam General Appearance: No Apparent Distress HEENT: Other (Pupils and face symmetric. Moist mucous membranes.) Neck: Full Range of Motion, Normal Inspection Respiratory: Lungs Clear, No Accessory Muscle Use, No Respiratory Distress, Normal Breath Sounds Cardiovascular: No Edema, No JVD, Regular Rate/Rhythm Breast Exam: Deferred Gastrointestinal: Non Tender, Soft Genitalia: Deferred Pelvic: Deferred Rectal: Deferred Extremities: Normal range of motion, No pedal edema, Other (RLE surgical wounds on the distal anterior thigh, infrapatellar and anterior tibial areas appear clean, dry and intact without surrounding erythema, edema, discoloration or tenderness. There is diffuse tenderness of the knee anteriorly and medial aspect of the leg and ankle without edema, bruising or discoloration. DP and PT pulses are 2+. Capillary refill is normal.) Neurologic: Alert (Oriented x4), Normal Affect, Other (Appears anxious.) Cerebellar Function: NOT DONE Reflexes: NOT DONE Skin: Dry, Normal Color, Warm Lymphatic: NOT DONE Was a procedure done? Was a procedure done?: No Differential Diagnosis EXT Differential Diagnosis: Cellulitis, Deep Vein Thrombosis, Compartment Syndrome, Fracture, Neurovascular injury, Arthritis, Bursitis X-Ray, Labs, Meds, VS Vital Signs Date Time Temp Pulse Resp B/P (MAP) Pulse Ox O2 Delivery O2 Flow Rate FiO2 10/14/24 19:50 68 18 97 Room Air* 0 21 10/14/24 19:50 98.1 78 18 120/78 (92) 97 98.1 10/14/24 18:21 99.0 92 16 124/56 (78) 99 99.0 Lab Test 10/14/24 18:55 Range/Units White Blood Count 6.4 4.4-10.8 10^3/uL Red Blood Count 4.12 4.0-5.20 10^6/uL Hemoglobin 12.5 12.2-16.2 g/dL Hematocrit 37.3 36.0-46.0 % Mean Corpuscular Volume 90.5 80.0-100.0 fL Mean Corpuscular Hemoglobin 30.4 28.0-32.0 pg Mean Corpuscular Hemoglobin Concent 33.6 32.0-36.0 g/dL Red Cell Distribution Width 13.5 11.8-14.3 % Platelet Count 279 140-450 10^3/uL Mean Platelet Volume 11.3 H 6.9-10.8 fL Neutrophils (%) (Auto) 52.6 37.0-80.0 % Lymphocytes (%) (Auto) 35.9 10.0-50.0 % Monocytes (%) (Auto) 6.5 0.0-12.0 % Eosinophils (%) (Auto) 4.2 0.0-7.0 % Basophils (%) (Auto) 0.8 0.0-2.0 % Neutrophils # (Auto) 3.4 1.6-8.6 10 ^3/uL Lymphocytes # (Auto) 2.3 0.4-5.4 10 ^3/uL Monocytes # (Auto) 0.4 0-1.3 10 ^3/uL Eosinophils # (Auto) 0.3 0-0.8 10 ^3/uL Basophils # (Auto) 0.1 0-0.2 10 ^3/uL Nucleated Red Blood Cells 0.1 % Sodium Level 143 136-145 mmol/L Potassium Level 3.7 3.5-5.1 mmol/L Chloride Level 106 98-107 mmol/L Carbon Dioxide Level 30 20-31 mmol/L Anion Gap 7 5-15 Blood Urea Nitrogen 18 9-23 mg/dL Creatinine 0.67 0.550-1.02 mg/dL Glomerular Filtration Rate Calc 118 >90 mL/min BUN/Creatinine Ratio 26.9 H 10.0-20.0 Serum Glucose 91 74-106 mg/dL Calcium Level 10.1 8.7-10.4 mg/dL PROCEDURE(s): RTBFB - R TIB FIB XRAY REASON: pain s/p surg ORDER NUMBER(s): [id number], ACCESSION NUMBER(s): [id number] CLINICAL INDICATION: pain s/p surg TECHNIQUE: XY R TIB FIB XRAY Comparison: XY R TIB FIB XRAY on DOS: 10/01/24, XY R TIB FIB XRAY on DOS: 09/22/24, XY R TIB FIB XRAY on DOS: 09/20/24 FINDINGS/IMPRESSION: : Mildly displaced fracture of the mid tibia. Intramedullary nail and interlocking screw fixation of the right tibia. No periprosthetic lucency Correlate with prior imaging prior to the ORIF to ensure the fracture is not a hardware complication. Overlying soft tissues are intact. EDURE(s): RKN3 - R KNEE 3V XRAY REASON: pain s/p surgery ORDER NUMBER(s): [id number], ACCESSION NUMBER(s): [id number] CLINICAL INDICATION: Right pain s/p surgery TECHNIQUE: XY R KNEE 3V XRAY Comparison: None FINDINGS/IMPRESSION: : There is no evidence of acute fracture or dislocation. Intramedullary nail and interlocking screw fixation of the proximal tibia. Overlying soft tissues are intact. EDURE(s): RLDVT - RT Lower DVT REASON: RLE pain s/p surgery ORDER NUMBER(s): [id number], ACCESSION NUMBER(s): [id number] CLINICAL HISTORY: RLE pain s/p surgery TECHNIQUE: Color and duplex doppler imaging of the right lower extremity veins was performed. Vessel compression if possible was also performed. WID: COMPARISON: US RT LOWER DVT on DOS: 10/01/24, US RT LOWER DVT on DOS: 09/20/24 FINDINGS: Right common femoral vein: Normal compressibility and flow. Right femoral vein: Normal compressibility and flow. Right popliteal vein: Normal compressibility and flow. Proximal calf veins are normally compressible. IMPRESSION: NO SONOGRAPHIC EVIDENCE FOR DEEP VENOUS THROMBOSIS IN THE RIGHT LOWER EXTREMITY VEINS. X-Ray, Labs, Meds, VS Comment 34-year-old female with a history of anxiety, depression, asthma, schizophrenia and recent right lower extremity ORIF brought in by EMS for evaluation of ongoing right lower extremity pain Vitals unremarkable Exam remarkable for RLE Surgical wounds on the distal anterior thigh, infrapatellar and anterior tibial areas appear clean, dry and intact without surrounding erythema, edema, discoloration or tenderness. There is diffuse tenderness of the knee anteriorly and medial aspect of the leg and ankle without edema, bruising or discoloration. DP and PT pulses are 2+. Capillary refill is normal. Rhythm strip independently interpreted by me: Sinus rhythm, rate 92, no ectopy. Right knee x-rays unremarkable Right tib-fib x-rays FINDINGS/IMPRESSION: : Mildly displaced fracture of the mid tibia. Intramedullary nail and interlocking screw fixation of the right tibia. No periprosthetic lucency Correlate with prior imaging prior to the ORIF to ensure the fracture is not a hardware complication. Overlying soft tissues are intact. Right lower extremity ultrasound negative for DVT CBC and basic metabolic panel unremarkable Patient treated with the following in the ED: Morphine 4 mg IM, Zofran ODT 4 mg p.o., gabapentin 300 mg p.o. On re-evaluation, patient states pain has improved. Vitals were stable. Patient appears stable for discharge with close outpatient follow-up with her orthopedist. Rx gabapentin. Continue [place] Time of 1ST Reevaluation: 18:31 Reevaluation 1ST: Unchanged Time of 2ND Reevaluation: 20:30 Reevaluation 2ND: Improved Patient Education/Counseling: Diagnosis, Treatment Family Education/Counseling: No Family Present Departure 1 Departure Time of Disposition: 19:03 Impression: Primary Impression: Postoperative pain Disposition: 01 HOME / SELF CARE / HOMELESS Condition: Stable Referrals: MILLICENT SNELL MD Additional Instructions: Your blood tests were unremarkable. Your x-rays and ultrasound were unremarkable for any new changes. I have prescribed additional pain medicine. Continue [place] as needed for pain. Follow-up with your orthopedist as soon as possible. e-Prescriptions Gabapentin (Once-Daily) (Gabapentin) 300 Mg Tab 300 MG PO TID PRN, #30 TAB prn pain Prov: DEL NÚÑEZ MD 10/14/24 Discharged With: Self Critical Care Note Critical Care Time?: No Stability Stability form required: No Heart Score Heart Score: Heart Score Response (Comments) Value History N/A 0 EKG N/A 0 Age N/A 0 Risk Factors N/A 0 Troponin N/A 0 Total 0 I personally scribed for DEL NÚÑEZ MD ([email or web address]) on 10/14/24 at 18:23. Electronically submitted by Henrry Solis ([facility]). I personally scribed for DEL NÚÑEZ MD ([email or web address]) on 10/14/24 at 18:31. Electronically submitted by Henrry Solis ([facility]). I personally scribed for DEL NÚÑEZ MD ([email or web address]) on 10/14/24 at 20:27. Electronically submitted by Henrry Solis ([facility]). DEL NÚÑEZ MD Oct 14, 2024 18:23
[2024-10-14 19:20] LABS: Chloride 106 mmol/L (98-107); Potassium 3.7 mmol/L (3.5-5.1); Sodium 143 mmol/L (136-145)
[2024-10-14 19:21] LABS: Anion Gap 7 (5-15); Calcium 10.1 mg/dL (8.7-10.4); Carbon Dioxide 30 mmol/L (20-31)
[2024-10-14 19:26] LABS: BUN/Creatinine Ratio 26.9 (10.0-20.0); Blood Urea Nitrogen 18 mg/dL (9-23); Glucose 91 mg/dL (74-106)
--- NOTE | 2024-10-14 19:26 | DVH ---
CLINICAL INDICATION: Right pain s/p surgery TECHNIQUE: XY R KNEE 3V XRAY Comparison: None FINDINGS/IMPRESSION: : There is no evidence of acute fracture or dislocation. Intramedullary nail and interlocking screw fixation of the proximal tibia. Overlying soft tissues are intact.
--- NOTE | 2024-10-14 19:27 | DVH ---
CLINICAL INDICATION: pain s/p surg TECHNIQUE: XY R TIB FIB XRAY Comparison: XY R TIB FIB XRAY on DOS: 10/01/24, XY R TIB FIB XRAY on DOS: 09/22/24, XY R TIB FIB XRAY o n DOS: 09/20/24 FINDINGS/IMPRESSION: : Mildly displaced fracture of the mid tibia. Intramedullary nail and interlocking screw fixation of th e right tibia. No periprosthetic lucency Correlate with prior imaging prior to the ORIF to ensure the fracture is not a hardware complication. Overlying soft tissues are intact.
[2024-10-14 19:33] LABS: Hematocrit 37.3 % (36.0-46.0); Hemoglobin 12.5 g/dL (12.2-16.2); Mean Corpuscular Hemoglobin 30.4 pg (28.0-32.0); Mean Corpuscular Volume 90.5 fL (80.0-100.0); Nucleated Red Blood Cells % 0.1 %
[2024-10-14 19:50] VITALS: PULSE 68; RESP 18; TEMP 98.1; O2SAT 97
--- NOTE | 2024-10-14 19:56 | DVH ---
CLINICAL HISTORY: RLE pain s/p surgery TECHNIQUE: Color and duplex doppler imaging of the right lower extremity veins was performed. Vessel compression if possible was also performed. WID: COMPARISON: US RT LOWER DVT on DOS: 10/01/24, US RT LOWER DVT on DOS: 09/20/24 FINDINGS: Right common femoral vein: Normal compressibility and flow. Right femoral vein: Normal compressibility and flow. Right popliteal vein: Normal compressibility and flow. Proximal calf veins are normally compressible. IMPRESSION: NO SONOGRAPHIC EVIDENCE FOR DEEP VENOUS THROMBOSIS IN THE RIGHT LOWER EXTREMITY VEINS.
[2024-10-14] MEDS ORDERED: KETOROLAC TROMETH 30 MG/ML 1ML VIAL IV ONE (20:00)
[2024-10-14] MEDS ORDERED: MORPHINE SULFATE 4 MG/ML SYR/VIAL IV ONE (20:00)
[2024-10-14] MEDS ORDERED: ONDANSETRON HCL 4 MG/2 ML VIAL IV ONE (20:00)
[2024-10-14] MEDS ORDERED: GABA300T4 PO (20:26)
[2024-10-14] MEDS: GABAPENTIN 300 MG CAP PO ONE (20:49)
[2024-10-14 20:50] VITALS: BP 118/78; PULSE 68
[2024-10-14] MEDS: ONDANSETRON ODT 4 MG TAB PO ONE (20:50)
[2024-10-14] MEDS: MORPHINE SULFATE 4 MG/ML SYR/VIAL IM ONE (20:50)
[2024-10-15 01:47] VITALS: RESP 20; O2SAT 92
== END 2024-10-14 20:26 | disposition home or self-care (01) ==
LOC: EDUNIT# 18:18 → EDBD 18:18 → ER 18:25
DX: G89.18 Other acute postprocedural pain (principal); F17.210 Nicotine dependence, cigarettes, uncomplicated; F10.90 Alcohol use, unspecified, uncomplicated; F19.90 Other psychoactive substance use, unspecified, uncomplicated; J45.909 Unspecified asthma, uncomplicated; F41.9 Anxiety disorder, unspecified; F32.A Depression, unspecified; F20.9 Schizophrenia, unspecified; Z98.890 Other specified postprocedural states; Z79.899 Other long term (current) drug therapy; Z88.5 Allergy status to narcotic agent; Y90.9 Presence of alcohol in blood, level not specified
CPT/HCPCS: 36415; 73562; 73590; 80048; 85025; 93971; 96372; 99285; J2270; Q0162

== ENCOUNTER 2024-10-17 12:56 | Emergency (ER) | payer MEDICAID ==
[~2024-10-17] VITALS: Ht 165.1 cm; Wt 56.8 kg
[~2024-10-17 12:56] MED LIST changes: +GABA300T4 PO
[2024-10-17 13:01] VITALS: TEMP 98.9
--- NOTE | 2024-10-17 14:14 | ED.PDOC ---
Musculoskeletal HPI Comments 34 y/o F, with PMHx of anxiety, depression, and schizophrenia, BRETT, presents to the ED for CC of lower extremity. Patient states, she has been experiencing postoperative pain since, 09/22/24 following right tibial fracture surgery. Patient reports, "it feels as if my tendons are ripping apart". Patient comments, to have a follow up appointment with tomorrow (10/18/24) however, is unable to withstand pain. Patient was seen at [facility] on 10/12/24 and 10/14/24 for SS and was departed home with no significant findings. Patient denies trauma, injury, or fall. No other symptoms or modifying factors present at this time. Chief Complaint: Lower Extremity Time Seen by MD: 14:10 Primary Care Provider: NONE Reviewed Notes: Nurses Notes, School Bus Monitor Notes, Medications, Allergies Allergies: Coded Allergies: Meperidine (Verified Allergy, Unknown, 05/22/15) Home Meds Active Scripts Gabapentin (Once-Daily) (Gabapentin) 300 Mg Tab, 300 MG PO TID PRN, #30 TAB prn pain Prov:DEL NÚÑEZ MD 10/14/24 Hydrocodone-Acetaminophen (Hydrocodone Bitartrate/AC 5-325 mg) 1 Tab Tab, 1 TAB PO TID PRN, #32 TAB Prov:DUKE DOUGLAS 10/13/24 Risperidone (RisperDAL TABLET) 1 Mg Tb, 1 TAB PO QPM for 30 Days, #30 TAB 1 Refill Prov:BRANDON LOWE DO 10/04/24 Amoxicillin & Pot Clavulanate (Augmentin) 500 Mg Tab, 1 TAB PO BID for 7 Days, #14 TAB Prov:BRANDON LOWE DO 10/04/24 Naproxen (NAPROSYN TABLET) 500 Mg Tb, 1 TAB PO BID for 15 Days, #30 TAB 1 Refill Prov:BRANDON LOWE DO 10/04/24 Hydrocodone-Acetaminophen (Hydrocodone Bitartrate/AC 5-325 mg) 1 Tab Tab, 1 TAB PO Q4HP PRN for 14 Days, #70 TAB Prov:SHOSHANA VASQUEZ MD 09/24/24 Reported Medications Risperidone (Risperidone) 3 Mg Tab, 1 TAB PO DAILY 09/20/24 Information Source: Patient, Emergency Med Personnel Mode of Arrival: EMS Location: Right Extremity Location: Leg Timing: Days Prehospital treatment: None Severity: Moderate Able to Move Extremity: No Bear Weight: Limited Pain: Moderate Mechanism: Blunt Trauma Onset of Symptoms: After Trauma DVT Risk Factors: NONE Last Tetanus: Unknown Associated signs and symptoms: Leg pain Past Medical History PAST MEDICAL HISTORY: Anxiety, Asthma, Depression, Schizophrenia Surgical History: APPLICATIONS DEVELOPER History: No Pertinent APPLICATIONS DEVELOPER History Family History Family History: Unknown Social History Smoker: Cigarettes Alcohol: Occasionally Drugs: Methamphetamine, Other Lives In: Home Constitutional: denies: chills, diaphoresis, fatigue, fever, malaise, sweats, weakness, others EENTM: denies: blurred vision, double vision, ear bleeding, ear discharge, ear drainage, ear pain, ear ringing, eye pain, eye redness, hearing loss, mouth pain, mouth swelling, nasal discharge, nose bleeding, nose congestion, nose pain, photophobia, tearing, throat pain, throat swelling, voice changes, others Respiratory: denies: cough, hemoptysis, orthopnea, SOB at rest, shortness of breath, SOB with excertion, stridor, wheezing, others Cardiovascular: denies: chest pain, dizzy spells, diaphoresis, Dyspnea on exertion, edema, irregular heart beat, left arm pain, lightheadedness, palpitations, PND, syncope, others Gastrointestinal: denies: abdomen distended, abdominal pain, blood streaked bowels, constipated, diarrhea, dysphagia, difficulty swallowing, hematemesis, melena, nausea, poor appetite, poor fluid intake, rectal bleeding, rectal pain, vomiting, others Genitourinary: denies: abnormal vagina bleeding, burning, dyspareunia, dysuria, flank pain, frequency, hematuria, incontinence, pain, , vagina discharge, urgency, others Neurological: denies: dizziness, fainting, headache, left sided numbness, left sided weakness, numbness, paresthesia, pre-existing deficit, right sided numbness, right sided weakness, seizure, speech problems, tingling, tremors, weakness, others Musculoskeletal: reports: others (right leg pain); denies: back pain, gout, joint pain, joint swelling, muscle pain, muscle stiffness, neck pain Integumetry: denies: bruises, change in color, change in hair/nails, dryness, laceration, lesions, lumps, rash, wounds, others Allergic/Immunocompromised: denies: Difficulty Healing, Frequent Infections, Hives, Itching, others Hematologic/Lymphatic: denies: anemia, blood clots, easy bleeding, easy bruising, swollen glands, others Endocrine: denies: excessive hunger, excessive sweating, excessive thirst, excessive urination, flushing, intolerance to cold, intolerance to heat, unexplained weight gain, unexplained weight loss, others Psychiatric: denies: anxiety, bipolar disorder, depression, hopeless, panic disorder, schizophrenia, sleepless, suicidal, others All Other Systems: Reviewed and Negative Physical Exam General Appearance: Mild Distress, Normal HEENT: Normal ENT Inspection, Pharynx Normal Neck: Full Range of Motion, Non-Tender, Normal, Normal Inspection Respiratory: Chest Non-Tender, Lungs Clear, No Accessory Muscle Use, No Respiratory Distress, Normal Breath Sounds Cardiovascular: No Edema, No Murmur, No Gallop, Normal Peripheral Pulses, Regular Rate/Rhythm Breast Exam: Deferred Gastrointestinal: No Organomegaly, Non Tender, No Pulsatile Mass, Normal Bowel Sounds, Soft Genitalia: Deferred Pelvic: Deferred Rectal: Deferred Extremities: No calf tenderness, Normal capillary refill, Normal inspection, Normal range of motion, Non-tender, No pedal edema Musculoskeletal : Apperance: Normal Neurologic: Alert, herb digger II-XII nml as Tested, No Motor Deficits, Normal Affect, Normal Mood, No Sensory Deficits Cerebellar Function: Normal Reflexes: Normal Skin: Dry, Normal Color, Warm, Other (well apperaing surgical wound to right diatal femur, right roblero, right tibial) Lymphatic: No Adenopathy Was a procedure done? Was a procedure done?: No Differential Diagnosis EXT Differential Diagnosis: Fracture X-Ray, Labs, Meds, VS Vital Signs Date Time Temp Pulse Resp B/P (MAP) Pulse Ox O2 Delivery O2 Flow Rate FiO2 10/17/24 13:01 98.9 89 18 123/48 (73) 98 98.9 Lab Test 10/17/24 13:04 Range/Units Urine Test Negative Negative Time of 1ST Reevaluation: 14:40 Reevaluation 1ST: Unchanged Patient Education/Counseling: Diagnosis, Treatment Family Education/Counseling: No Family Present Departure 1 Departure Time of Disposition: 17:47 (Patient's workup is benign. She has orthopedic follow up tomorrow.) Impression: Primary Impression: Postoperative pain Disposition: HOME / SELF CARE / HOMELESS Condition: Stable Additional Instructions: Your x-rays today were benign. It is important to follow up with the orthopedic surgeon tomorrow. Please go to your appointment. You should continue to take your pain medications as directed Discharged With: Self Critical Care Note Critical Care Time?: No Stability Stability form required: No Heart Score Heart Score: Heart Score Response (Comments) Value History N/A 0 EKG N/A 0 Age N/A 0 Risk Factors N/A 0 Troponin N/A 0 Total 0 I personally scribed for MARK BENTON MD ([email or web address]) on 10/17/24 at 14:13. Electronically submitted by Nanette Chappell ([email or web address]). I personally scribed for MARK BENTON MD ([email or web address]) on 10/17/24 at 14:30. Electronically submitted by Nanette Chappell ([email or web address]). I personally scribed for MARK BENTON MD ([email or web address]) on 10/17/24 at 14:49. Electronically submitted by Nanette Chappell ([email or web address]). MARK BENTON MD Oct 17, 2024 14:13
[2024-10-17] MEDS: HYDROcodone-ACET 10/325MG TAB PO ONE (14:30)
--- NOTE | 2024-10-17 18:17 | DVH ---
Indication: pain Technique: XY R ANKLE 2 VIEW XRAYXY Comparison: None FINDINGS/IMPRESSION: No radiographic evidence for acute fracture or dislocation. Right tibial intramedullary donald. Mild d egenerative changes right ankle. Mild right ankle soft tissue edema.
--- NOTE | 2024-10-17 18:26 | DVH ---
CLINICAL INDICATION: pain TECHNIQUE: XY R KNEE 2V XRAY, 4 radiographic views of the right knee were obtained. 4 images receive d Comparison: XY R KNEE 2V XRAY. XY R KNEE 3V XRAY on DOS: 10/14/24 FINDINGS/IMPRESSION: There is no evidence of acute fracture or dislocation. An intramedullary donald in the right tibia. The visualized joint space is well maintained. The alignment is anatomical. There is no radiopaque foreign body.
[2024-10-17 19:52] VITALS: BP 114/90; PULSE 97; RESP 18; O2SAT 98
== END 2024-10-17 20:10 | disposition home or self-care (01) ==
LOC: EDBD 12:56 → ER 12:56
DX: G89.18 Other acute postprocedural pain (principal); F17.210 Nicotine dependence, cigarettes, uncomplicated; F19.90 Other psychoactive substance use, unspecified, uncomplicated; J45.909 Unspecified asthma, uncomplicated; F20.9 Schizophrenia, unspecified; F41.9 Anxiety disorder, unspecified; F32.A Depression, unspecified; F10.90 Alcohol use, unspecified, uncomplicated; Z88.5 Allergy status to narcotic agent; Z79.899 Other long term (current) drug therapy; Y90.9 Presence of alcohol in blood, level not specified
CPT/HCPCS: 73560; 73600; 81025

== ENCOUNTER 2024-11-09 17:08 | Emergency (ER) | payer MEDICAID ==
[~2024-11-09] VITALS: Ht 160 cm; Wt 46.0 kg
[2024-11-09 17:20] VITALS: BP 124/78; PULSE 98; RESP 20; TEMP 98; O2SAT 100
--- NOTE | 2024-11-09 18:10 | ED.PDOC ---
History of Present Illness HPI Comments This is a 34-year-old female with past medical history of schizophrenia on risperidone, bronchial asthma, status post internal fixation of right lower extremity presented to the ED with a complaint of feel like spider bite in right ankle and also in right knee. On physical examination there was no sign of ins ect bite, erythema or ulceration in the right lower leg. Spoke with patient's orthopedics Dr. Aragon recommended to follow up in orthopedics clinic on [facility] tomorrow on 11/10/2024. Spoke with the patient there is no signs of insect bite and does not need any antibiotics. Patient understand her condition and is receptive to plan of care and also arranged transportation to go back to home. Chief Complaint: Lower Extremity Time Seen by MD: 17:16 Primary Care Provider: NONE Allergies: Coded Allergies: Meperidine (Verified Allergy, Unknown, 05/22/15) Home Meds Active Scripts Gabapentin (Once-Daily) (Gabapentin) 300 Mg Tab, 300 MG PO TID PRN, #30 TAB prn pain Prov:DEL NÚÑEZ MD 10/14/24 Hydrocodone-Acetaminophen (Hydrocodone Bitartrate/AC 5-325 mg) 1 Tab Tab, 1 TAB PO TID PRN, #32 TAB Prov:DUKE DOUGLAS 10/13/24 Risperidone (RisperDAL TABLET) 1 Mg Tb, 1 TAB PO QPM for 30 Days, #30 TAB 1 Refill Prov:BRANDON LOWE DO 10/04/24 Amoxicillin & Pot Clavulanate (Augmentin) 500 Mg Tab, 1 TAB PO BID for 7 Days, #14 TAB Prov:BRANDON LOWE DO 10/04/24 Naproxen (NAPROSYN TABLET) 500 Mg Tb, 1 TAB PO BID for 15 Days, #30 TAB 1 Refill Prov:BRANDON LOWE DO 10/04/24 Hydrocodone-Acetaminophen (Hydrocodone Bitartrate/AC 5-325 mg) 1 Tab Tab, 1 TAB PO Q4HP PRN for 14 Days, #70 TAB Prov:SHOSHANA VASQUEZ MD 09/24/24 Reported Medications Risperidone (Risperidone) 3 Mg Tab, 1 TAB PO DAILY 09/20/24 Information Source: Patient Mode of Arrival: EMS Severity: None Timing: Days Duration: Since onset Prehospital treatment: None Past Medical History PAST MEDICAL HISTORY: Anxiety, Asthma, Depression, Schizophrenia Surgical History: 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 & 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 History: No Pertinent RESEARCH & ANALYTICS MANAGER History Family History Family History: Unknown Social History Smoker: Cigarettes Alcohol: Occasionally Drugs: Methamphetamine, Other Lives In: Home Constitutional: denies: chills, diaphoresis, fatigue, fever, malaise, sweats, weakness, others EENTM: denies: blurred vision, double vision, ear bleeding, ear discharge, ear drainage, ear pain, ear ringing, eye pain, eye redness, hearing loss, mouth pain, mouth swelling, nasal discharge, nose bleeding, nose congestion, nose pain, photophobia, tearing, throat pain, throat swelling, voice changes, others Respiratory: denies: cough, hemoptysis, orthopnea, SOB at rest, shortness of breath, SOB with excertion, stridor, wheezing, others Cardiovascular: denies: chest pain, dizzy spells, diaphoresis, Dyspnea on exertion, edema, irregular heart beat, left arm pain, lightheadedness, palpitations, PND, syncope, others Gastrointestinal: denies: abdomen distended, abdominal pain, blood streaked bowels, constipated, diarrhea, dysphagia, difficulty swallowing, hematemesis, melena, nausea, poor appetite, poor fluid intake, rectal bleeding, rectal pain, vomiting, others Genitourinary: denies: abnormal vagina bleeding, burning, dyspareunia, dysuria, flank pain, frequency, hematuria, incontinence, pain, , vagina discharge, urgency, others Neurological: denies: dizziness, fainting, headache, left sided numbness, left sided weakness, numbness, paresthesia, pre-existing deficit, right sided numbness, right sided weakness, seizure, speech problems, tingling, tremors, we akness, others Musculoskeletal: denies: back pain, gout, joint pain, joint swelling, muscle pain, muscle stiffness, neck pain, others Integumetry: reports: change in color; denies: bruises, change in hair/nails, dryness, laceration, lesions, lumps, rash, wounds, others Allergic/Immunocompromised: denies: Difficulty Healing, Frequent Infections, Hives, Itching, others Hematologic/Lymphatic: denies: anemia, blood clots, easy bleeding, easy bruising, swollen glands, others Psychiatric: denies: anxiety, bipolar disorder, depression, hopeless, panic disorder, schizophrenia, sleepless, suicidal, others Physical Exam General Appearance: Normal HEENT: Normal ENT Inspection, Pharynx Normal, TMs Normal Neck: Full Range of Motion, Non-Tender, Normal, Normal Inspection Respiratory: Chest Non-Tender, Lungs Clear, No Accessory Muscle Use, No Respiratory Distress, Normal Breath Sounds Cardiovascular: No Edema, No JVD, No Murmur, No Gallop, Normal Peripheral Pulses, Regular Rate/Rhythm Breast Exam: Deferred Gastrointestinal: No Organomegaly, Non Tender, No Pulsatile Mass, Normal Bowel Sounds, Soft Genitalia: Deferred Pelvic: Deferred Rectal: Deferred Extremities: No calf tenderness, Normal capillary refill, Normal inspection, Normal range of motion, Non-tender, No pedal edema Neurologic: NOT DONE Cerebellar Function: NOT DONE Reflexes: NOT DONE Skin: NOT DONE Peripheral Pulses: 2+ carotid (R), 2+ carotid (L), 2+ femoral (R), 2+ femoral (L), 2+ dorsalis pedis (R), 2+ dorsalis pedis (L), 2+ Radial (R), 2+ Radial (L), 2+ Brachial (R), 2+ Brachial (L) Lymphatic: NOT DONE Was a procedure done? Was a procedure done?: No Differential Dx Considerations may include: Anxiety, schizophrenia X-Ray, Labs, Meds, VS Vital Signs Date Time Temp Pulse Resp B/P (MAP) Pulse Ox O2 Delivery O2 Flow Rate FiO2 11/09/24 17:20 98.0 98 20 124/78 100 98.0 Time of 1ST Reevaluation: 18:20 Reevaluation 1ST: N/A Patient Education/Counseling: Diagnosis, Treatment Family Education/Counseling: No Family Present SEPSIS Sepsis Screen Date sepsis recognized/suspect: Nov 09, 2024 Time Sepsis recognized/suspect: 1708 Recent Procedure: No On Antibiotic Therapy: No Respiratory Rate >20: No Heart Rate >90: No Temp<36 C (96.8 F) or >38.3 C: No SBP <90 or MAP <65 mmHG: No New Acute Mental Status Change: No Is the patient on CPAP, BIPAP,: No Vital Signs Date Time Temp Pulse Resp B/P (MAP) Pulse Ox O2 Delivery O2 Flow Rate FiO2 11/09/24 17:20 98.0 98 20 124/78 100 98.0 Departure 1 Departure Time of Disposition: 18:20 Impression: Primary Impression: Illness anxiety disorder Disposition: 01 HOME / SELF CARE / HOMELESS Condition: Fair Critical Care Note Critical Care Time?: No Stability Stability form required: SYDNI Harley RESIDENT Nov 09, 2024 18:10
== END 2024-11-09 19:11 | disposition home or self-care (01) ==
LOC: ER 17:08 → EDBD 17:08 → ER 19:11
DX: F45.21 Hypochondriasis (principal); F17.210 Nicotine dependence, cigarettes, uncomplicated; F19.90 Other psychoactive substance use, unspecified, uncomplicated; F10.90 Alcohol use, unspecified, uncomplicated; F41.9 Anxiety disorder, unspecified; J45.909 Unspecified asthma, uncomplicated; F32.A Depression, unspecified; F20.9 Schizophrenia, unspecified; Z88.5 Allergy status to narcotic agent; Z79.899 Other long term (current) drug therapy; Y90.9 Presence of alcohol in blood, level not specified

== ENCOUNTER 2024-11-10 10:37 | Emergency (ER) | payer MEDICAID ==
[~2024-11-10] VITALS: Ht 170.2 cm; Wt 61.6 kg
[2024-11-10] MEDS ORDERED: SODIUM CHLORIDE 0.9% 1,000 ML IV ONE (11:00)
--- NOTE | 2024-11-10 11:03 | ED.PDOC ---
History of Present Illness HPI Comments This is a 34-year-old female with past medical history of schizophrenia on risperidone, bronchial asthma, status post internal fixation of right lower extremity presented to the ED with a complaint of feel like spider bite all over the body, brain and also complaining of shortness of breath and nausea. Denies chest pain, blurred vision, dizziness, abdominal pain or any change in bowel and bladder habit. Yesterday the patient came to ED with complaint of spider bite in right ankle and knee. On physical examination there was no sign of insect bite, erythema or ulceration in the right lower leg. Spoke with patient's orthopedics Dr. Aragon recommended to follow up in orthopedics clinic on [facility] tomorrow on 11/10/2024. Spoke with the patient there is no signs of insect bite and does not need any antibiotics. Patient understand her condition and is receptive to plan of care and also arranged transportation to go back to home. The patient is medically cleared and consulted tele psych for psychiatric evaluation of patient presenting symptoms. Chief Complaint: Nausea/Vomiting Time Seen by MD: 10:59 Primary Care Provider: NONE Allergies: Coded Allergies: Meperidine (Verified Allergy, Unknown, 05/22/15) Home Meds Active Scripts Gabapentin (Once-Daily) (Gabapentin) 300 Mg Tab, 300 MG PO TID PRN, #30 TAB prn pain Prov:DEL NÚÑEZ MD 10/14/24 Hydrocodone-Acetaminophen (Hydrocodone Bitartrate/AC 5-325 mg) 1 Tab Tab, 1 TAB PO TID PRN, #32 TAB Prov:DUKE DOUGLAS 10/13/24 Risperidone (RisperDAL TABLET) 1 Mg Tb, 1 TAB PO QPM for 30 Days, #30 TAB 1 Refill Prov:BRANDON LOWE DO 10/04/24 Amoxicillin & Pot Clavulanate (Augmentin) 500 Mg Tab, 1 TAB PO BID for 7 Days, #14 TAB Prov:BRANDON LOWE DO 10/04/24 Naproxen (NAPROSYN TABLET) 500 Mg Tb, 1 TAB PO BID for 15 Days, #30 TAB 1 Refill Prov:BRANDON LOWE DO 10/04/24 Hydrocodone-Acetaminophen (Hydrocodone Bitartrate/AC 5-325 mg) 1 Tab Tab, 1 TAB PO Q4HP PRN for 14 Days, #70 TAB Prov:SHOSHANA VASQUEZ MD 09/24/24 Reported Medications Risperidone (Risperidone) 3 Mg Tab, 1 TAB PO DAILY 09/20/24 Information Source: Patient Mode of Arrival: EMS Severity: Moderate Timing: Hours Duration: Since onset Prehospital treatment: None Past Medical History PAST MEDICAL HISTORY: Anxiety, Asthma, Depression, Schizophrenia 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: No Pertinent UPHOLSTERER APPRENTICE History Family History Family History: Unknown Social History Smoker: Cigarettes Alcohol: Occasionally Drugs: Methamphetamine, Other Lives In: Home Constitutional: denies: chills, diaphoresis, fatigue, fever, malaise, sweats, weakness, others EENTM: denies: blurred vision, double vision, ear bleeding, ear discharge, ear drainage, ear pain, ear ringing, eye pain, eye redness, hearing loss, mouth pain, mouth swelling, nasal discharge, nose bleeding, nose congestion, nose pain, photophobia, tearing, throat pain, throat swelling, voice changes, others Respiratory: reports: shortness of breath; denies: cough, hemoptysis, orthopnea, SOB at rest, SOB with excertion, stridor, wheezing, others Cardiovascular: reports: lightheadedness; denies: chest pain, dizzy spells, diaphoresis, Dyspnea on exertion, edema, irregular heart beat, left arm pain, palpitations, PND, syncope, others Gastrointestinal: reports: nausea; denies: abdomen distended, abdominal pain, blood streaked bowels, constipated, diarrhea, dysphagia, difficulty swallowing, hematemesis, melena, poor appetite, poor fluid intake, rectal bleeding, rectal pain, vomiting, others Genitourinary: denies: abnormal vagina bleeding, burning, dyspareunia, dysuria, flank pain, frequency, hematuria, incontinence, pain, , vagina discharge, urgency, others Neurological: denies: dizziness, fainting, headache, left sided numbness, left sided weakness, numbness, paresthesia, pre-existing deficit, right sided numbness, right sided weakness, seizure, speech problems, tingling, tremors, weakness, others Musculoskeletal: denies: back pain, gout, joint pain, joint swelling, muscle pain, muscle stiffness, neck pain, others Integumetry: denies: bruises, change in color, change in hair/nails, dryness, laceration, lesions, lumps, rash, wounds, others Allergic/Immunocompromised: denies: Difficulty Healing, Frequent Infections, Hives, Itching, others Hematologic/Lymphatic: denies: anemia, blood clots, easy bleeding, easy bruising, swollen glands, others Endocrine: denies: excessive hunger, excessive sweating, excessive thirst, excessive urination, flushing, intolerance to cold, intolerance to heat, unexplained weight gain, unexplained weight loss, others Psychiatric: reports: anxiety, depression, schizophrenia; denies: bipolar disorder, hopeless, panic disorder, sleepless, suicidal, others Physical Exam General Appearance: Mild Distress HEENT: Normal ENT Inspection, Pharynx Normal, TMs Normal Neck: Full Range of Motion, Non-Tender, Normal, Normal Inspection Respiratory: Chest Non-Tender, Lungs Clear, No Accessory Muscle Use, No Respiratory Distress, Normal Breath Sounds Cardiovascular: No Edema, No JVD, No Murmur, No Gallop, Normal Peripheral Pulses, Regular Rate/Rhythm Breast Exam: Deferred Gastrointestinal: No Organomegaly, Non Tender, No Pulsatile Mass, Normal Bowel Sounds, Soft Genitalia: Deferred Pelvic: Deferred Rectal: Deferred Extremities: No calf tenderness (rt foot), Normal capillary refill, Normal inspection, Non-tender, No pedal edema, Tender Neurologic: NOT DONE Cerebellar Function: NOT DONE Reflexes: NOT DONE Skin: Dry, Normal Color, Warm Peripheral Pulses: 3+ carotid (R), 3+ carotid (L), 3+ femoral (R), 3+ femoral (L), 3+ dorsalis pedis (R), 3+ dorsalis pedis (L), 3+ Radial (R), 3+ Radial (L), 3+ Brachial (R), 3+ Brachial (L) Lymphatic: NOT DONE Was a procedure done? Was a procedure done?: No Differential Dx Considerations may include: Unspecified psychosis, polysubstance abuse, Anxiety, delusional disorder, schizophrenia. X-Ray, Labs, Meds, VS Vital Signs Date Time Temp Pulse Resp B/P (MAP) Pulse Ox O2 Delivery O2 Flow Rate FiO2 11/10/24 16:20 92 16 100 Room Air* 0 21 11/10/24 16:01 82 20 100 Nasal Cannula 1.0 11/10/24 16:01 82 20 114/65 (81) 100 11/10/24 15:55 97.4 82 20 114/65 (81) 100 97.4 11/10/24 10:41 98.2 84 16 126/86 96 98.2 Lab Test 11/10/24 15:14 11/10/24 11:12 Range/Units Urine Opiates Screen Neg NEGATIVE Urine Fentanyl Screen Neg NEGATIVE Urine Barbiturates Screen Neg NEGATIVE Urine Phencyclidine Screen Pos NEGATIVE Urine Amphetamines Screen Pos NEGATIVE Urine Benzodiazepines Screen Neg NEGATIVE Urine Cocaine Screen Neg NEGATIVE Urine Cannabinoids Screen Neg NEGATIVE Plasma/Serum Blood Alcohol < 3.0 <10 mg/dL Current Medications Medications (Trade) Dose Ordered Sig/Monique Route Start Time Stop Time Status Last Admin Ondansetron HCl (Zofran) 4 mg ONCE ONCE IV 11/10/24 11:00 11/10/24 11:22 DC 11/10/24 16:19 Sodium Chloride 500 ml @ 500 mls/hr Q1H ONCE IV 11/10/24 12:30 11/10/24 13:29 DC 11/10/24 16:08 X-Ray, Labs, Meds, VS Comment UDS is positive for amphetamine and phencyclidine. Tele psych evaluation done and mentioned unspecified psychosis rule out substance induced and recommended This is 34-year-old female with hx of psychosis and polysubstance use. She continues to reports tactile hallucinations of spiders poking her, AH, and paranoid thoughts .Recommend to medicate with Olanzapine 10mg po x1 now and re-evaluate Am once substances have metabolized. Time of 1ST Reevaluation: 18:20 Reevaluation 1ST: Improved Consultation: Psychiatry Patient Education/Counseling: Diagnosis, Treatment (Patient is medically cleared and needs psychiatric evaluation for her ongoing presenting symptoms) Family Education/Counseling: No Family Present SEPSIS Sepsis Screen Date sepsis recognized/suspect: Nov 10, 2024 Time Sepsis recognized/suspect: 1036 Recent Procedure: No On Antibiotic Therapy: No Respiratory Rate >20: No Heart Rate >90: No Temp<36 C (96.8 F) or >38.3 C: No SBP <90 or MAP <65 mmHG: No New Acute Mental Status Change: No Is the patient on CPAP, BIPAP,: No Physician Orders *Tele Psych Consult (11/10/24 11:01) Saline Lock (11/10/24 15:43) Olanzapine Tablet (Zyprexa Tablet) (11/10/24 20:45) Vital Signs Date Time Temp Pulse Resp B/P (MAP) Pulse Ox O2 Delivery O2 Flow Rate FiO2 11/10/24 16:20 92 16 100 Room Air* 0 21 11/10/24 16:01 82 20 100 Nasal Cannula 1.0 11/10/24 16:01 82 20 114/65 (81) 100 11/10/24 15:55 97.4 82 20 114/65 (81) 100 97.4 11/10/24 10:41 98.2 84 16 126/86 96 98.2 Medications Medications Dose Ordered Sig/Monique Route Start Time Stop Time Status Last Admin Dose Admin Ondansetron HCl 4 mg ONCE ONCE IV 11/10/24 11:00 11/10/24 11:22 DC 11/10/24 16:19 Sodium Chloride 500 ml @ 500 mls/hr Q1H ONCE IV 11/10/24 12:30 11/10/24 13:29 DC 11/10/24 16:08 Departure 1 Departure Time of Disposition: 18:20 Impression: Primary Impression: Unspecified psychosis Additional Impression: Polysubstance abuse Disposition: 30 STILL A PATIENT Admit to: Condition: Guarded Critical Care Note Critical Care Time?: No Stability Stability form required: SYDNI Harley RESIDENT Nov 10, 2024 11:03
[2024-11-10 15:39] LABS: Amphetamine Screen, Urine Pos (NEGATIVE); Barbiturate Scree,Urine Neg (NEGATIVE); Benzodiazephine Screen, Urine Neg (NEGATIVE); Cocaine Screen, Urine Neg (NEGATIVE)
[2024-11-10 15:40] LABS: Opiate Scree,Urine Neg (NEGATIVE); Phencyclidine Screen, Urine Pos (NEGATIVE)
[2024-11-10 15:41] LABS: Cannabinoid Screen, Urine Neg (NEGATIVE)
[2024-11-10 15:55] VITALS: TEMP 97.4
[2024-11-10 16:01] VITALS: BP 114/65
[2024-11-10] MEDS: SODIUM CHLORIDE 0.9% 500 ML IV ONE (16:08)
[2024-11-10] MEDS: ONDANSETRON HCL 4 MG/2 ML VIAL IV ONE (16:19)
[2024-11-10 16:20] VITALS: PULSE 92; RESP 16; O2SAT 100
[2024-11-10] MEDS: HYDROcodone-ACET 5/325MG TAB PO ONE (16:53)
--- NOTE | 2024-11-10 20:18 | DVHINCON2 ---
Date of Service if different f: Nov 10, 2024 Consultation ([facility]) Labs Laboratory Tests Test 11/10/24 11:12 11/10/24 15:14 Plasma/Serum Blood Alcohol < 3.0 mg/dL (<10) Urine Opiates Screen Neg (NEGATIVE) Urine Fentanyl Screen Neg (NEGATIVE) Urine Barbiturates Screen Neg (NEGATIVE) Urine Phencyclidine Screen Pos (NEGATIVE) Urine Amphetamines Screen Pos (NEGATIVE) Urine Benzodiazepines Screen Neg (NEGATIVE) Urine Cocaine Screen Neg (NEGATIVE) Urine Cannabinoids Screen Neg (NEGATIVE) Appearance: Stated age, Groomed Psychomotor activity: Agitated Behavioral: Hostile Eye contact: Intense Speech: Pressured, Rapid Affect: Labile, Irritable Mood: Elevated, Irritable Thought processes: Preservative Thought content: Paranoid, Delusions (ideas of reference), Hallucinations (tactile) Suicidal ideations: Absent Homicidal ideations: Absent Orientation: Person, Place, Time Memory intact: Recent Intellect: Average Abstractability: Marginal Concentration: Limited Judgement: Poor Insight: Poor Vitals Vital Signs Date Time Temp Pulse Resp B/P (MAP) Pulse Ox O2 Delivery O2 Flow Rate FiO2 11/10/24 16:20 92 16 100 Room Air* 0 21 11/10/24 16:01 114/65 (81) 11/10/24 15:55 97.4 97.4 Medication adjusted: Yes Diagnosis: unspecified psychosis r/o substance-induced Plan : This is 34-year-old female with hx of psychosis and polysubstance use. She continues to reports tactile hallucinations of spiders poking her, AH, and paranoid thoughts Recommend to medicate with Olanzapine 10mg po x1 now and re-evaluate Am once substances have metabolized History of Present Illness Reason for Consult : Patient reporting spider bite HPI : This is a 34-year-old female with prior hx of psychosis. she presented to ED reporting spider bites all over her body. Per prior evaluation by ED phys mary, she was examined and no evidence pf this. Patient is evaluated via telepsychiatry . She continues to report no one is h elping her despite her reports of spider bites. She reports feeling spider spoking her lungs, throat, brain and began to feel like she cannot breathe. She came here to seek help but not receiving it. She starts raising her voices and screaming that people thinks she is crazy but she is not. She reports if she does not receive help, fears she could have her legs amputated. She denies having these spider bites or poking in the past. She also reports auditory hallucinations of "hearing spiritual things" and seeing things. She also reports a girl that is following her around and another girl responsible for loss of custody of her 4 children. She claims the girl is putting fentanyl in her baby's bottle. She is again screaming that she is sick of this girl. She does not provide name. She denies suicidal/homicidal ideation. Discussed with patient that her urine tox + amph and PCP and she denies using any substances and claims this from her using diet pills. Past Psychiatric History : She only reports hx of depression and anxiety. She is prescribed Risperdone and unsure of dose. She reports connection to [facility] and recent follow up with her therapist. She reports past psych admission in May of this year. She denies prior suicide attempts Past Medical History : She denies Social History : She reports living in hotels, denies permanent housing. She has multiple ED visits here in the past. She has 4 children and they live with her partner. She reports vape of nicotine only. She denies substance use. She denies any known family history. She denies access to firearms KAY BONNER DNP Nov 10, 2024 20:18
--- NOTE | 2024-11-10 20:20 | DVHINCON2 ---
Consultation ([facility]) Labs Laboratory Tests Test 11/10/24 11:12 11/10/24 15:14 Plasma/Serum Blood Alcohol < 3.0 mg/dL (<10) Urine Opiates Screen Neg (NEGATIVE) Urine Fentanyl Screen Neg (NEGATIVE) Urine Barbiturates Screen Neg (NEGATIVE) Urine Phencyclidine Screen Pos (NEGATIVE) Urine Amphetamines Screen Pos (NEGATIVE) Urine Benzodiazepines Screen Neg (NEGATIVE) Urine Cocaine Screen Neg (NEGATIVE) Urine Cannabinoids Screen Neg (NEGATIVE) Appearance: Stated age, Groomed Psychomotor activity: Agitated Behavioral: Hostile Eye contact: Intense Speech: Pressured, Rapid Affect: Labile, Irritable Mood: Elevated, Irritable Thought processes: Preservative Thought content: Paranoid, Delusions (ideas of reference), Hallucinations (tactile) Suicidal ideations: Absent Homicidal ideations: Absent Orientation: Person, Place, Time Memory intact: Recent Intellect: Average Abstractability: Marginal Concentration: Limited Judgement: Poor Insight: Poor Vitals Vital Signs Date Time Temp Pulse Resp B/P (MAP) Pulse Ox O2 Delivery O2 Flow Rate FiO2 11/10/24 16:20 92 16 100 Room Air* 0 21 11/10/24 16:01 114/65 (81) 11/10/24 15:55 97.4 97.4 Medication adjusted: Yes Diagnosis: unspecified psychosis r/o substance-induced Plan : This is 34-year-old female with hx of psychosis and polysubstance use. She continues to reports tactile hallucinations of spiders poking her, AH, and paranoid thoughts Recommend to medicate with Olanzapine 10mg po x1 now and re-evaluate Am once substances have metabolized History of Present Illness Reason for Consult : HPI : Past Psychiatric History : Past Medical History : Social History : KAY BONNER DNP Nov 10, 2024 20:20
[2024-11-10] MEDS: OLANZapine 5 MG TAB PO ONE (21:01)
== END 2024-11-11 01:16 | disposition home or self-care (01) ==
LOC: EDBD 10:37 → ER 10:37
DX: F29 Unspecified psychosis not due to a substance or known physiological condition (principal); F19.10 Other psychoactive substance abuse, uncomplicated; F17.210 Nicotine dependence, cigarettes, uncomplicated; F10.90 Alcohol use, unspecified, uncomplicated; F41.9 Anxiety disorder, unspecified; J45.909 Unspecified asthma, uncomplicated; F32.A Depression, unspecified; F20.9 Schizophrenia, unspecified; Z98.890 Other specified postprocedural states; Z88.5 Allergy status to narcotic agent; Z79.899 Other long term (current) drug therapy; Y90.9 Presence of alcohol in blood, level not specified
CPT/HCPCS: 36415; 80307; 80320; 96361; 96374; 99284; J2405; J7040

== ENCOUNTER → 2025-02-04 02:22 | Emergency (ER) | payer MEDICAID | END | disposition left against medical advice (07) | LOC: ER 02:22 | DX: M54.2 Cervicalgia (principal); Z53.21 Procedure and treatment not carried out due to patient leaving prior to being seen by health care provider ==